=== PATIENT | female | born 1985 | race Caucasian/White ===

== ENCOUNTER 2016-06-30 16:57 | Emergency (ER) | payer BC, OTHER ==
[~2016-06-30] VITALS: Ht 167.6 cm; Wt 131.0 kg
[~2016-06-30 16:57] MED LIST: ADVIN50/60 INH; ALBU1AER9 INH; BTLAI INJ; CETI10TA84 PO; CHOL2000 PO; CLIN1GEL TOP; CYCL10TA6 PO; GUAI1TAB27 PO; HALO0.5T9 PO; HYDR-4079 PO; HYDR0.5T PO; LORA1TAB13 PO; MECL1TAB40 PO; MGRIN; MISC4CAP PO; MONT1TAB3 PO; OMEP40CA PO; ONDA4TAB7 SL; TIZA4CAP PO; ZOLP5TAB PO
[2016-06-30 17:14] VITALS: TEMP 37; Ht 167.6 cm; Wt 131.0 kg
[2016-06-30] MEDS ORDERED: VTMD PO (17:59)
[2016-06-30] MEDS ORDERED: ALBU18002 INH (17:59)
--- NOTE | 2016-06-30 18:00 | DIAGNOSTIC IMAGING REPORT ---
LEFT SHOULDER MIN 2 VIEWS ROUTINE CLINICAL HISTORY: posterior pain pain COMPARISON: None. DISCUSSION: The bones and joint spaces appear intact. There is no evidence of fracture, dislocation or bony disease. There is no evidence for soft tissue swelling. IMPRESSION: Negative study. Electronically signed by: Uziel Sheehan M.D. 06/30/2016 5:59 PM Dictated Date/Time: 06/30/2016 5:58 PM
--- NOTE | 2016-06-30 18:33 | EMERGENCY ROOM VISIT NOTE ---
ED Visit Note First contact with patient: 17:19 Chief Complaint: LEFT Shoulder and Neck Pain History of Present Illness: Patient is a 30 year old female who presents to the emergency room today for evaluation of her LEFT sided posterior shoulder pain. She reports that while sitting in her recliner chair she noticed pain and cramping to the posterior shoulder. She reports a popping-like sensation to her back. 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 She reports a history of similar symptoms to the LEFT-sided shoulder. The patient rates her current discomfort as a 6/10. She is tried nothing [id number] for her symptoms. She denies any numbness or tingling into the distal extremity. She denies any associated elbow pain, forearm pain, or wrist pain. Medications: Reviewed and discussed with the patient. Allergies: Multiple allergies listed above. PMH: No pertinent past medical history. SHx: Patient is a 30-year-old female who lives locally. ROS: All pertinent positive and negative review of systems are appropriately documented in the History of Present Illness. Physical Exam: VITAL SIGNS - Vital signs and nursing notes were reviewed. GENERAL - 30-year-old female appearing her stated age and in noticeable discomfort throughout the exam. NECK - FROM of the cervical spine. No spinous process or paraspinal muscle tenderness to palpation. No nuchal rigidity. LUNGS - Chest wall symmetric without accessory muscle use, intercostals retractions, or central cyanosis. Normal vesicular breath sounds CTA B/L. No wheezes, rales, or rhonchi appreciated. CARDIAC - RRR with S1/S2. No murmur, rubs, or gallops appreciated. MUSCULOSKELETAL - Active ROM of the LEFT shoulder was limited in all directions. Greater than 110 of abduction. No step-off deformities of the clavicle were palpable. No tenderness over the AC joint with palpation. No tenderness to palpation at the bicepital insertion. No tenderness to palpation over the deltoid. Tenderness to palpation over the LEFT rhomboid muscle distribution. NEUROLOGIC - SENSORY: Spinothalamic tract was found to be intact with ability to discriminate sharp versus dull sensation at the level of the LEFT side of the neck down to the fingertips. No sensory deficits of the dorsal column were appreciated utilizing light touch for evaluation. VASCULAR - Capillary refill was brisk. +3/5 radial pulse palpated. IMAGING: LEFT SHOULDER MIN 2 VIEWS ROUTINE CLINICAL HISTORY: posterior pain pain COMPARISON: None. DISCUSSION: The bones and joint spaces appear intact. There is no evidence of fracture, dislocation or bony disease. There is no evidence for soft tissue swelling. IMPRESSION: Negative study. ED Course: Patient was seen and evaluated by myself. X-ray of the affected shoulder was obtained. Imaging results above. Imaging results were reviewed with the patient who acknowledges understanding. The patient was educated on conservative measures at home. She was educated on worrisome symptoms for return visit to the emergency department. Patient discharged home in good condition. In the evaluation and treatment of this patient, the following differential diagnoses were considered: Shoulder Contusion, Shoulder Fracture, Shoulder Dislocation, Thoracic Outlet Syndrome, Adhesive Capsulitis, Rotator Cuff Tear, Proximal Clavicle Head Fracture, Apical Pneumonia, Pneumothorax, Hemothorax, or TB. Impression: LEFT Shoulder Pain - Musculoskeletal Strain Discharge Instructions: You have been treated in the Emergency Department for Shoulder Pain - Musculoskeletal Strain. For pain control, you can use the following [id number] medicines (if >12 yo): - Regular strength (325mg/tab) Tylenol (acetaminophen) 2 tabs every 4-6 hours as needed. Do not exceed 12 tablets in a 24 hour period. Avoid taking more than 4 grams (4000 mg) of Tylenol per day. This includes any other sources of acetaminophen you may take on a regular basis. - Regular strength (200 mg/tab) Advil (ibuprofen) 1-2 tabs every 4-6 hours as needed. Do not exceed a dose of 3200 mg per day. If this is a recent injury (<24 hrs), ice can be applied to the area of pain for the first 3 days to help decrease pain and inflammation. Return to the Emergency Department if your current symptoms worsen despite treatment course outlined above, or if you develop any of the following symptoms : intractable pain despite aforementioned treatment course or new onset of numbness or tingling of the arm. Problem List Medical Problems: (1) Asthma Status: Chronic (2) Bronchitis Status: Chronic (3) Dysmenorrhea Status: Chronic (4) Migraines Status: Chronic Surgical Problems: (1) History of laparoscopy Status: Resolved (2) [place] teeth extracted Status: Resolved Current/Historical Medications Scheduled Clindamycin Phosphate (Topical (Cleocin-T), 1 APPLN TOP UD Cyanocobalamin (Vitamin B-12), 1,000 MCG PO DAILY Ergocalciferol (Vitamin D), 50,000 UNIT PO SUNDAY Fexofenadine Hcl (Kera), 180 MG PO HS Montelukast Sodium (Singulair), 10 MG PO DAILY Omeprazole (Prilosec), 40 MG PO QAM Scheduled PRN Albuterol Sulfate (Proair Respiclick), 2 PUFFS INH Q4 PRN for PRN Cyclobenzaprine Hcl (Flexeril), 10 MG PO TID PRN for headache,neck pain Dicyclomine Hcl (Dicyclomine Hcl), 10 MG PO TID PRN for rhinitis,asthma,anx,h/a, ibs Guaifenesin (Guaifenesin), 400 MG PO Q4 PRN for cold sx Haloperidol (Haldol), 2 MG PO BID PRN for Migraine Hydrocodone/Acetaminophen 10MG/325MG ([place] 10MG/325MG), 1 TAB PO Q4H PRN for Pain Lorazepam (Lorazepam), 0.5-1 MG PO BID PRN for anxiety Ondasetron Odt (Zofran Odt), 4 MG SL TID PRN for Nausea Promethazine HCl (Promethazine HCl), 25 MG PO TID PRN for migraine headache, nausea Tizanidine (Zanaflex), 4 MG PO BID PRN for PRN Tramadol (Ultram), 50 MG PO BID PRN for Headache Zolpidem Tartrate (Ambien), 5 MG PO HS PRN for Sleep Allergies Coded Allergies: POLLEN (Verified Allergy, Intermediate, asthma, 06/30/16) Sumatriptan (Verified Allergy, Intermediate, unknown, 06/30/16) Bacitracin (Verified Allergy, Mild, HIVES, 06/30/16) Doxycycline (Verified Allergy, Mild, GI SYMPTOMS, 06/30/16) Neomycin (Verified Allergy, Mild, HIVES, 06/30/16) Polymyxin B (Verified Allergy, Mild, HIVES, 06/30/16) Povidone Iodine (Verified Allergy, Mild, HIVES, 06/30/16) Animal Dander (Verified Allergy, Unknown, ., 06/30/16) Levofloxacin (Verified Allergy, Unknown, itchy/breathing difficulty, ) Eletriptan (Verified Adverse Reaction, Intermediate, neck stiffness, ) Uncoded Allergies: ADHESIVE (Adverse Reaction, Unknown, erthema, 07/21/13) patient Vital Signs Date Time Temp Pulse Resp B/P Pulse Ox O2 Delivery O2 Flow Rate FiO2 06/30/16 18:37 84 18 137/101 97 Room Air 06/30/16 17:14 37.0 85 18 128/91 99 Room Air Departure Information Impression Primary Impression: Left shoulder strain Dispostion Home / Self-Care Condition GOOD Referrals Noah Rader D.O.[facility]. (PCP) Patient Instructions My [facility] Additional Instructions You have been treated in the Emergency Department for Shoulder Pain - Musculoskeletal Strain. For pain control, you can use the following iozn-ttj-tuwfeyx medicines (if >12 yo): - Regular strength (325mg/tab) Tylenol (acetaminophen) 2 tabs every 4-6 hours as needed. Do not exceed 12 tablets in a 24 hour period. Avoid taking more than 4 grams (4000 mg) of Tylenol per day. This includes any other sources of acetaminophen you may take on a regular basis. - Regular strength (200 mg/tab) Advil (ibuprofen) 1-2 tabs every 4-6 hours as needed. Do not exceed a dose of 3200 mg per day. If this is a recent injury (<24 hrs), ice can be applied to the area of pain for the first 3 days to help decrease pain and inflammation. Return to the Emergency Department if your current symptoms worsen despite treatment course outlined above, or if you develop any of the following symptoms : intractable pain despite aforementioned treatment course or new onset of numbness or tingling of the arm. Problem Qualifiers Primary Impression: Left shoulder strain Encounter type: initial encounter Qualified Codes: S46.912A - Strain of unspecified muscle, fascia and tendon at shoulder and upper arm level, left arm , initial encounter
[2016-06-30 18:37] VITALS: BP 137/101; PULSE 84; O2SAT 97
[2016-12-23] MEDS ORDERED: FEXO1TAB46 PO (00:14)
[2016-12-23] MEDS ORDERED: DICY10CA12 PO (00:24)
[2016-12-23] MEDS ORDERED: PROM25TA16 PO (08:43)
[2016-12-23] MEDS ORDERED: CYAN100048 PO (08:43)
[2016-12-23] MEDS ORDERED: TRAM-10 PO (16:55)
[2016-12-23] MEDS ORDERED: OMEP40CA41 PO (17:59)
[2016-12-23] MEDS ORDERED: ONDA4TAB10 SL (17:59)
== END 2016-06-30 18:38 | disposition home or self-care (01) ==
LOC: C.EDB 16:58 → C.EDD 18:38
DX: S46.912A Strain of unspecified muscle, fascia and tendon at shoulder and upper arm level, left arm, initial encounter (principal); X58.XXXA Exposure to other specified factors, initial encounter; J45.909 Unspecified asthma, uncomplicated; Q79.6 Ehlers-Danlos syndromes; Z79.899 Other long term (current) drug therapy; Z88.8 Allergy status to other drugs, medicaments and biological substances

== ENCOUNTER 2016-12-23 18:01 | Emergency (ER) | payer BC ==
[~2016-12-23] VITALS: Ht 165.1 cm; Wt 135.0 kg
[~2016-12-23 18:01] MED LIST changes: -ADVIN50/60 INH; +ALBU18002 INH; -ALBU1AER9 INH; -BTLAI INJ; -CETI10TA84 PO; -CHOL2000 PO; +CYAN100048 PO; +DICY10CA12 PO; +FEXO1TAB46 PO; -HYDR0.5T PO; -MECL1TAB40 PO; -MGRIN; -MISC4CAP PO; -OMEP40CA PO; +OMEP40CA41 PO; +ONDA4TAB10 SL; -ONDA4TAB7 SL; +PROM25TA16 PO; +TRAM-10 PO; +VTMD PO
[2016-12-23 18:17] VITALS: TEMP 36.6; Ht 165.1 cm; Wt 135.0 kg
[2016-12-23] MEDS ORDERED: ACETAMINOPHEN 325 MG TAB PO STA (18:48)
[2016-12-23] MEDS ORDERED: ZOLP5TAB6 PO (19:14)
[2016-12-23] MEDS ORDERED: HYDR-4313 PO (19:14)
[2016-12-23] MEDS ORDERED: SNG10 PO (19:14)
[2016-12-23] MEDS ORDERED: LEVO-14 PO (19:14)
[2016-12-23] MEDS ORDERED: ALBINS/ NEB (19:14)
[2016-12-23] MEDS ORDERED: ADVIN50/60 INH (19:14)
[2016-12-23] MEDS ORDERED: CELE1CAP30 PO (19:14)
[2016-12-23] MEDS ORDERED: ATV1 PO (19:14)
[2016-12-23] MEDS ORDERED: TIZA1CAP PO (19:14)
[2016-12-23 19:20] VITALS: BP 147/84; PULSE 79; O2SAT 99
--- NOTE | 2016-12-23 23:57 | EMERGENCY ROOM VISIT NOTE ---
ED Visit Note First contact with patient: 18:22 Chief Complaint: Headache. History of Present Illness: Ms. Burton is a 31-year-old white female who ambulates into the ED complaining of a headache. Patient reports less than an hour ago she was picking up her cell phone which it dropped on the floor of her car. While she was standing up she struck the top of her head on the door frame of her car. At the time of the injury she had no loss of consciousness, but since the injury she reports that she has had a headache over the top of her head. She describes the headache as a throbbing sensation. She rates her discomfort 5/ 10. Her pain is nonradiating. She has not identified any aggravating or alleviating factors related to the pain. She has not taken any medications for pain prior to arrival at the hospital. Associated with her pain she reports she is having left shoulder pain over the trapezius muscle over the scapula and feels like she is having difficulty focusing her vision. She denies dizziness, lightheadedness, loss of vision, hearing changes, difficulty speaking, difficulty swallowing, difficulty ambulating/coordinating body movements,neck pain, nausea/vomiting, extremity weakness/numbness/tingling. Review of Systems: As noted above in history of present illness. 8 body systems were reviewed and found to be negative as noted above. Past Medical History:asthma, bronchitis, right upper extremity DVT, unspecified connective tissue disorder, migraine headaches, shoulder and knee arthritis, hypothyroidism, status post wisdom teeth extraction, tonsillectomy, pelvic laparoscopy for endometriosis Current Medications: Medications Dose Route/Sig Max Daily Dose Days Date Category Dose Instructions Lorazepam 1 Mg Tab 1 Mg PO DAILY PRN 12/23/16 Reported Zolpidem Tartrate 5 Mg Tab 5 Mg PO HS PRN 12/23/16 Reported Proventil 0.083% 2.5MG/3ML (Albuterol Sulf) 2.5 Mg/3 Ml Nebu 1 Vial NEB Q4-6HRS PRN 12/23/16 Reported Advair Diskus 500/50 60 Dose (Fluticasone Prop/Salmeterol) 1 Ea Aerp 1 Puff INH BID PRN 12/23/16 Reported RINSE MOUTH AFTER USE Montelukast Sodium (Montelukast Sod) 10 Mg Tab 10 Mg PO HS 12/23/16 Reported Levocetirizine Dihydrochl (Levocetirizine Dihydrochloride) 5 Mg Tab 5 Mg PO DAILY PRN 12/23/16 Reported Tizanidine Hcl 2 Mg Cap 2 Mg PO TID PRN 12/23/16 Reported Celecoxib 200 Mg Cap 200 Mg PO DAILY 12/23/16 Reported Hydrocodone/Acetaminophen 5-325 mg (Acetaminophen/Hydrocodone Bitart) 1 Ea Tab 1-2 Tabs PO Q4-6HRS PRN 12/23/16 Reported Prilosec (Omeprazole) 40 Mg Cap 40 Mg PO QAM 06/30/16 Reported Zofran Odt (Ondansetron HCl) 4 Mg Tab 4 Mg SL TID PRN 06/30/16 Reported Ultram (Tramadol HCl) 50 Mg Tab 50 Mg PO BID PRN 04/24/14 Reported Dicyclomine Hcl 10 Mg Cap 10 Mg PO TID PRN 07/21/13 Reported Kear (Fexofenadine Hcl) 180 Mg Tab 180 Mg PO HS 07/21/13 Reported Promethazine HCl 25 Mg Tab 25 Mg PO TID PRN 01/22/13 Reported Vitamin B-12 (Cyanocobalamin) 1,000 Mcg Sub 1,000 Mcg PO DAILY 01/22/13 Reported Allergies to Medications:bacitracin, doxycycline, Desitin, Levaquin, Betadine, Social History:patient is currently employed; she lives there parents and feels safe in her home environment; she denies tobacco and alcohol use. Physical Examination: Vital Signs: Date Time Temp Pulse Resp B/P (MAP) Pulse Ox O2 Delivery O2 Flow Rate FiO2 12/23/16 19:20 79 20 147/84 99 12/23/16 18:17 36.6 77 20 153/98 97 Room Air GENERAL: 31-year-old female in mild distress due to pain, nontoxic-appearing, afebrile and hemodynamically stable. NEUROLOGICAL: Awake, alert and oriented to person, place and time. Answering questions appropriately and following commands. Normal gait. Good hand eye coordination. No focal motor or sensory deficits. Cranial nerves II through XII grossly intact. Romberg test negative. Pronator drift test negative. Good short-term and long-term recall. Normal rapid or any movements of the hands and fingers. Normal heel dumont test. SKIN: Warm, dry and pink. No soft tissue trauma noted. HEENT: Atraumatic and normocephalic. Skull: No bony deformity, bony crepitus, depressions, swelling or ecchymosis. No raccoon's eyes or ross signs. No drainage in the ears or the nostril; no hemotympanum. Face: No bony tenderness , swelling or ecchymosis. PERRLA. Sclera white and conjunctiva pink. no malocclusion. No intraoral trauma. Airway patent. Speech normal. Trachea midline. No jugular venous distention. BACK: No tenderness over the bony cervical and thoracic spine. full range of motion of the cervical spine.No CVA tenderness. THORAX: Lungs sounds are clear to auscultation and equal bilaterally with symmetrical chest wall. ABDOMEN: Obese, soft and nontender. Positive bowel sounds in all quadrants. No guarding, rigidity or organomegaly. EXTREMITIES: Moves all extremities well on command and with purpose. All distal neurovascular statuses are intact and equal bilaterally. 5/5 muscle strength in all movements of the shoulders, elbows, wrists, forearms, fingers, hips, knees, ankles and feet. ED Course: Patient is assessed as noted above. Patient was given 650 mg of acetaminophen by mouth for pain. I had a discussion with the patient about the risks and benefits of CT scanning ; attentive her conversation she deferred to watch and wait approach. Patient was educated about today's findings and instructed on her treatment plan ; she verbalizes understanding and agreement with this plan. Clinical Impression: Closed head injury. Disposition: Patient discharged home in stable condition; prior to departure she was reassessed and subjectively reported she was feeling the same. Plan: Patient was encouraged to use 650 mg of acetaminophen every 6 hours as needed for pain. Patient was encouraged use ice over areas of pain 4-5 times a day for 20-30 minutes. Patient was encouraged to avoid alcohol use and strenuous activities. Patient was educated on signs of worsening head injury. Patient was encouraged return ED for any signs of worsening head injury or any new/concerning symptoms.
== END 2016-12-23 19:21 | disposition home or self-care (01) ==
LOC: C.EDB 18:03 → C.EDD 19:21
DX: S09.90XA Unspecified injury of head, initial encounter (principal); W22.09XA Striking against other stationary object, initial encounter; M25.512 Pain in left shoulder; J45.909 Unspecified asthma, uncomplicated; G43.909 Migraine, unspecified, not intractable, without status migrainosus; M19.019 Primary osteoarthritis, unspecified shoulder; M17.9 Osteoarthritis of knee, unspecified; E03.9 Hypothyroidism, unspecified; Z86.718 Personal history of other venous thrombosis and embolism

== ENCOUNTER → 2017-04-09 | Outpatient (CLI) | payer BC ==
[~2017-04-09] MED LIST changes: +ADVIN50/60 INH; +ALBINS/ NEB; -ALBU18002 INH; +ATV1 PO; +CELE1CAP30 PO; -CLIN1GEL TOP; -CYCL10TA6 PO; -GUAI1TAB27 PO; -HALO0.5T9 PO; -HYDR-4079 PO; +HYDR-4313 PO; +LEVO-14 PO; -LORA1TAB13 PO; -MONT1TAB3 PO; +SNG10 PO; +TIZA1CAP PO; -TIZA4CAP PO; -VTMD PO; -ZOLP5TAB PO; +ZOLP5TAB6 PO
[2017-04-09 19:09] LABS: ALT/SGPT 26 U/L (12-78); BLOOD UREA NITROGEN 17 mg/dl (7-18); BUN/CREATININE RATIO 18.6 (10-20); CALCIUM 9.1 mg/dl (8.5-10.1); CARBON DIOXIDE 26 mmol/L (21-32); CHLORIDE 105 mmol/L (98-107); CHOLESTEROL 155 mg/dl (0-200); GLUCOSE 95 mg/dl (70-99); POTASSIUM 3.8 mmol/L (3.5-5.1); SODIUM 138 mmol/L (136-145)
[2017-04-09 19:16] LABS: ALB/GLOB RATIO 1.1 (0.9-2); ALKALINE PHOSPHATASE 81 U/L (45-117); AST/SGOT 16 U/L (15-37); CHOLESTEROL/HDL RATIO 3.4; HDL CHOLESTEROL 45 mg/dl; LDL CHOLESTEROL CALCULATED 85 mg/dl; TRIGLYCERIDES 124 mg/dl (0-150); VERY LOW DENSITY LIPOPROT CALC 25 mg/dl
== END | disposition home or self-care (01) ==
LOC: C.LAB 17:48
PROVIDERS: ATTEND Physician Assistant
DX: E55.9 Vitamin D deficiency, unspecified (principal); E05.00 Thyrotoxicosis with diffuse goiter without thyrotoxic crisis or storm

== ENCOUNTER → 2017-09-11 | Outpatient (CLI) | payer OTHER ==
[2017-09-11 19:21] LABS: BASO % 0.4 %; BASO ABS # 0.04 K/uL (0-0.2); EOS % 2.8 %; EOS ABS # 0.29 K/uL (0-0.5); HEMATOCRIT 37.6 % (37-47); IG# 0.02 K/uL (0.00-0.02); LYMPH % 28.5 %; LYMPH ABS # 2.98 K/uL (1.2-3.4); MEAN CORPUSCULAR HEMOGLOBIN 25.2 pg (25-34); MEAN CORPUSCULAR HGB CONC 31.9 g/dl (32-36); MONO % 5.9 %; MONO ABS # 0.62 K/uL (0.11-0.59); NEUT % 62.2 %; PLATELET COUNT 285 K/uL (130-400); RED CELL DISTRIBUTION WIDTH CV 16.2 % (11.5-14.5); RED CELL DISTRIBUTION WIDTH SD 46.9 fL (36.4-46.3); WHITE BLOOD COUNT 10.45 K/uL (4.8-10.8)
== END | disposition home or self-care (01) ==
LOC: C.LAB 18:48
PROVIDERS: ATTEND Internal Medicine
DX: Z00.00 Encounter for general adult medical examination without abnormal findings (principal); E53.8 Deficiency of other specified B group vitamins; E55.9 Vitamin D deficiency, unspecified; E05.00 Thyrotoxicosis with diffuse goiter without thyrotoxic crisis or storm

== ENCOUNTER → 2017-09-19 | Outpatient (CLI) | payer OTHER ==
[2017-09-19 15:52] LABS: ALBUMIN 3.3 gm/dl (3.4-5.0); ALT/SGPT 17 U/L (12-78); AST/SGOT 12 U/L (15-37); BLOOD UREA NITROGEN 13 mg/dl (7-18); CALCIUM 8.3 mg/dl (8.5-10.1); CARBON DIOXIDE 24 mmol/L (21-32); GLUCOSE 79 mg/dl (70-99); POTASSIUM 3.7 mmol/L (3.5-5.1); SODIUM 139 mmol/L (136-145)
[2017-09-19 15:54] LABS: ALKALINE PHOSPHATASE 70 U/L (45-117); TOTAL PROTEIN 6.6 gm/dl (6.4-8.2)
[2017-09-19 16:40] LABS: HEP C IGG 13 YRS+OLDER_RFLX NEG (NEG)
[2017-09-21 12:54] LABS: ANA SCREEN TC 249X POSITIVE (NEGATIVE); ANTI-SS-A <1.0 NEG AI (<1.0 NEG); ANTI-SS-B <1.0 NEG AI (<1.0 NEG); ANTI-dsDNA RECOMBINANT 255X <1 IU/ML; COMPLEMENT C3 TC 44859W 160 MG/DL (90-180); COMPLEMENT C4 TC 44982E 34 MG/DL (16-47)
[2017-09-25 09:03] LABS: ANA TITER > OR = 1:1280 TITER (<1:40)
== END | disposition home or self-care (01) ==
LOC: C.LAB 14:33
PROVIDERS: ATTEND Internal Medicine
DX: M35.9 Systemic involvement of connective tissue, unspecified (principal)

== ENCOUNTER 2020-12-09 09:24 | Inpatient (IN) ==
[2020-12-09] MEDS ORDERED: ONDANSETRON INJ 2 MG/ML 2 ML VIAL IV STA (09:53)
--- NOTE | 2020-12-09 10:00 | Emergency Department Note ---
Impression & Plan Vertigo, Near syncope, Abnormal chest CT ED Provider Note NAME: ROSELYN KIM AGE: 35 SEX: F : 1985 ARRIVES VIA: Walk-In INFORMANT: Patient, ED PROVIDER(S): Ángel Harris DO CHIEF COMPLAINT: Dizziness HPI: The patient is a 35-year-old female who presented to the emergency department for an evaluation of dizziness. The patient describes episodes where she feels like she is falling forward but also dizziness that sounds almost like near syncope. She has lightheadedness. She states that she has had similar symptoms in the past. She also states that she has had upper respiratory symptoms for the last few weeks as well. She went to see her family doctor for the symptoms. She had outpatient laboratory studies done and was told to go to the ER last night because of a positive D-dimer. The patient denies having any chest pain. She states that she has had shortness of breath but has a history of asthma and states her shortness of breath appears to be at baseline according to her. The patient states that she was sent to the emergency department but when she came to the emergency department last evening the wait was too long so she went home. The patient denies having any lower extremity swelling. She has no abdominal pain. She has no vaginal bleeding or discharge. She denies having any back pain at this time. The patient states her symptoms were improved this morning but then when she got up to go to work she noticed that she was having the symptoms again. For this reason she came to the emergency department today for further work-up and management. ROS: See above HPI for pertinent positives & negatives. A total of 10 systems reviewed and were otherwise negative. PAST MEDICAL HISTORY: See Below PAST SURGICAL HISTORY: See Below FAMILY HISTORY: See Below SOCIAL HISTORY: See Below HOME MEDICATIONS: See Below ALLERGIES: See Below VITALS: See Below PHYSICAL EXAMINATION: GENERAL: Patient is awake alert in no acute distress patient is resting comfortably and showing no signs of anxiety EYES: The conjunctivae are clear. The pupils are round and reactive. No nystagmus was elicited. EARS, NOSE, MOUTH AND THROAT: The nose is without any evidence of any deformity. NECK: The neck is nontender and supple. RESPIRATORY: Normal respiratory effort is noted there is no evidence of wheezing rhonchi or rales CARDIOVASCULAR: Regular rate and rhythm noted there no murmurs rubs or gallops normal S1 normal S2. GASTROINTESTINAL: The abdomen is soft. Abdomen is nontender. MUSCULOSKELETAL/EXTREMITIES: There is no evidence of gross deformity full range of motion is noted in the hips and shoulders. SKIN: There is no obvious evidence of any rash. There are no petechiae, pallor or cyanosis noted. NEUROLOGIC: Patient is awake alert and oriented x3 strength is symmetric patellar reflexes are 2+ bilaterally MEDICAL DECISION MAKING: The patient is a 35-year-old female who presented to the emergency department for an evaluation of dizziness and near syncope. The patient also had vertigo symptoms. The patient was seen by her primary care physician's office recently. She had outpatient laboratory studies. 1 of which was a D-dimer. The patient was sent to the emergency department for CT of the chest because of the elevated D-dimer. She had no chest pain. She was not tachycardic or hypoxic. The patient symptoms appear to be more consistent with vertigo. Even her findings I felt the patient may require further work-up for neurologic causes for her vertigo. I discussed the patient's laboratory and radiographic studies with her. I discussed her case with the on-call [facility] hospitalist. She had a CT of the chest as recommended by her family doctor. This showed an area of possible thrombus in the atrial appendage. I discussed this finding with the on-call cardiology group. They did recommend the patient get a transesophageal echo. MRI was then ordered to ensure there was no acute neurologic process that would keep the patient from being anticoagulated. Triage Nursing notes reviewed. Prior medical records reviewed Vital Signs: reviewed and remarkable for elevated blood pressure. Differential diagnosis: Benign positional vertigo, dehydration, hypovolemia, anemia, tumor, infection, h ypoglycemia, electrolyte abnormalities, cardiac sources, intracerebral event, toxicologic, neurologic, as well as other pathologies. ER treatment provided: See below Diagnostics interpreted by me: ECG: EKG was obtained in the emergency department. My interpretation is normal sinus rhythm at 76 bpm. There is no ectopy. There was no acute ST segment abnormalities noted. This was compared to a tracing from December 03, 2013. No significant changes were noted. Cardiac Monitoring: An order was placed for continuous cardiac monitoring. The monitor shows a rate of 70 bpm with sinus rhythm. Laboratory studies: As stated above and show below. Imaging studies: See below Consultation(s): 1315: I discussed this case with Dr. Leon. 1330: I discussed this case with Shimon who is on-call for the [facility] hospitalist group. Past Med/Surg History Medical History (Updated 12/09/20 @ 16:52 by Ángel Harris DO) Acute deep vein thrombosis of right upper extremity Asthma Chronic GERD Depression with anxiety Dislocation of left hip Dysmenorrhea Fecal retention Generalized hypermobility of joints Graves disease Hypothyroidism Irritable bowel syndrome Migraines Morbid obesity Vertigo Surgical History H/O wisdom tooth extraction S/P laparoscopic procedure 2011, neg for pelvic pain Family History Father Dyslipidemia Hypertension Diabetes Mother Hypertension Glaucoma Breast cancer age 60's Diabetes Asthma Grandmother (Paternal) Breast cancer Denies family history of Ovarian cancer Colorectal cancer Social History Smoking Status: Never smoker Hx Alcohol Use: No Hx Substance Use: No Preferred Language: Armenian Communication Ability: Effective Visual Impairment: No Limitations Hearing Ability: Normal Beliefs That Will Affect Care: None marital status: single Current Living Situation: Parent current occupational status: student Feels Safe at Home: Yes Assistive Devices: Glasses Allergies Allergies Allergy/AdvReac Type Severity Reaction Status Date / Time pollen extracts Allergy Intermediate asthma Verified 12/09/20 10:56 sumatriptan Allergy Intermediate unknown Verified 12/09/20 10:56 aspirin Allergy Mild Unknown Verified 12/09/20 10:56 bacitracin Allergy Mild HIVES Verified 12/09/20 10:56 divalproex sodium Allergy Mild Unknown Verified 12/09/20 10:56 [From Depakote] doxycycline Allergy Mild GI SYMPTOMS Verified 12/09/20 10:56 neomycin Allergy Mild HIVES Verified 12/09/20 10:56 polymyxin B Allergy Mild HIVES Verified 12/09/20 10:56 povidone-iodine Allergy Mild HIVES Verified 12/09/20 10:56 soap [From Betadine] Allergy Mild Unknown Verified 12/09/20 10:56 adhesive Allergy Unknown ERYTHEMA Verified 12/10/20 02:22 animal dander Allergy Unknown . Verified 12/09/20 10:56 levofloxacin Allergy Unknown itchy/breathing Verified 12/09/20 10:56 difficulty topiramate [From Topamax] Allergy Unknown Verified 12/09/20 10:56 eletriptan AdvReac Intermediate neck Verified 12/09/20 10:56 stiffness [id number] AdvReac Intermediate welt and Verified 12/09/20 10:56 [From Ajovy] itching lamotrigine [From Lamictal] AdvReac Intermediate Headache Verified 12/09/20 10:56 zonisamide [From Zonegran] AdvReac Mild Nausea Verified 12/09/20 10:56 Home Meds Home Medications Medication Instructions Recorded Confirmed cyanocobalamin (vitamin B-12) 1,000 mcg PO DAILY tab 03/30/19 12/09/20 1,000 mcg tablet,extended release olopatadine 0.7 % eye drops 1 drp OPB DAILY 03/30/19 12/09/20 fexofenadine 180 mg tablet 180 mg PO PM 02/24/20 12/09/20 cholecalciferol (vitamin D3) 50 5,000 unit PO DAILY cap 08/20/20 12/09/20 mcg (2,000 unit) capsule ferrous sulfate 27 mg iron tablet 0 mg PO Q OTHER DAY 12/09/20 12/09/20 ibuprofen 200 mg tablet 400 mg PO QAM PRN 12/09/20 12/09/20 levocetirizine 5 mg tablet 5 mg PO DAILY 12/09/20 12/09/20 tizanidine 2 mg tablet 2 - 4 mg PO BID PRN 12/09/20 12/09/20 tramadol 50 mg tablet 50 mg PO BID PRN 12/09/20 12/09/20 Previous Rx's Medication Instructions Recorded albuterol sulfate 2.5 mg INHALATION Q4H PRN #3 ml 07/25/19 lorazepam 1 mg tablet 1 mg PO BID PRN #30 tab 07/29/19 albuterol sulfate 90 mcg/actuation 2 puffs INH Q4H PRN #18 gm 11/24/19 aerosol inhaler pantoprazole 40 mg tablet,delayed 40 mg PO DAILY #90 tab 11/24/19 release ondansetron 4 mg disintegrating 4 mg PO ONCE PRN #30 tab 09/30/20 tablet promethazine 25 mg tablet 25 mg PO ONCE PRN #30 tab 09/30/20 meclizine 25 mg tablet 25 mg PO TID PRN #60 tab 12/08/20 Results & Data (ED) Vital Signs Vital Signs - 24 hr 12/09/20 09:29 12/09/20 10:25 12/09/20 11:25 Temperature 36.5 C Temperature Source Temporal Artery Scan Pulse Rate 82 Pulse Rate [Right Finger] Respiratory Rate 18 Respiratory Effort / Characteristics Respiratory Depth Respiratory Pattern Blood Pressure 142/87 H Blood Pressure [Left Arm] 142/88 H Blood Pressure Mean 105 Blood Pressure Mean [Left Arm] 106 Blood Pressure Position [Left Arm] Pulse Oximetry 99 Oxygen Delivery Method Room Air Room Air Sepsis Recent Fever Within 48 Hours No Sepsis New/Unexplained Change in Mental Status N/A Sepsis Action Taken by Nursing No Action Required 12/09/20 13:00 Temperature Temperature Source Pulse Rate Pulse Rate [Right Finger] 87 Respiratory Rate 20 Respiratory Effort / Characteristics Non-Labored Respiratory Depth Normal Respiratory Pattern Regular Blood Pressure Blood Pressure [Left Arm] 154/89 H Blood Pressure Mean Blood Pressure Mean [Left Arm] 110 Blood Pressure Position [Left Arm] Lying Pulse Oximetry 97 Oxygen Delivery Method Room Air Sepsis Recent Fever Within 48 Hours Sepsis New/Unexplained Change in Mental Status Sepsis Action Taken by Prison Medications Current Medication List: was personally reviewed by me Laboratory Data Attestation: I reviewed the patient's lab results. Result diagrams: 12/09/20 10:45 12/09/20 10:45 Lab Results 12/09/20 12/09/20 12/09/20 Range/Units 10:45 10:45 10:45 WBC 9.20 (4.8-10.8) K/uL RBC 4.91 (4.2-5.4) M/uL Hgb 12.0 (12.0-16.0) g/dL Hct 38.4 (37-47) % MCV 78.2 L (80-100) fL MCH 24.4 L (25-34) pg MCHC 31.3 L (32-36) g/dL RDW Std Deviation 47.8 H (36.4-46.3) fL RDW Coeff of [place] 16.7 H (11.5-14.5) % Plt Count 282 (130-400) K/uL MPV 10.5 H (7.4-10.4) fL Immature Gran % (Auto) 0.2 % Neut % (Auto) 67.7 % Lymph % (Auto) 21.6 % [place] % (Auto) 7.6 % Eos % (Auto) 2.6 % Baso % (Auto) 0.3 % Neut # (Auto) 6.22 (1.4-6.5) K/uL Lymph # (Auto) 1.99 (1.2-3.4) K/uL [place] # (Auto) 0.70 H (0.11-0.59) K/uL Eos # (Auto) 0.24 (0-0.5) K/uL Baso # (Auto) 0.03 (0-0.2) K/uL Immature Gran # (Auto) 0.02 (0.00-0.02) K/uL Sodium 140 (136-145) mmol/L Potassium 3.8 (3.5-5.1) mmol/L Chloride 111 H (98-107) mmol/L Carbon Dioxide 27 (21-32) mmol/L Anion Gap 2.0 L (3-11) BUN 7 (7-18) mg/dl Creatinine 0.91 (0.6-1.2) mg/dl Est Cr Clr Drug Dosing 118.3 ml/min Est GFR ( Amer) 94.1 ml/min Est GFR (Non-Af Amer) 81.2 ml/min BUN/Creatinine Ratio 8.0 L (10-20) Glucose 106 H (70-99) mg/dl Calcium 8.7 (8.5-10.1) mg/dl Magnesium 2.3 (1.8-2.4) mg/dl Total Bilirubin 0.3 (0.2-1) mg/dl AST 13 L (15-37) U/L ALT 19 (12-78) U/L Alkaline Phosphatase 58 (45-117) U/L Troponin I < 0.015 (0-0.045) ng/ml Total Protein 6.4 (6.4-8.2) gm/dl Albumin 3.3 L (3.4-5.0) gm/dl Globulin 3.1 (2.5-4.0) gm/dl Albumin/Globulin Ratio 1.1 (0.9-2) TSH 2.370 (0.300-4.500) uIu/ml HCG, Qual Negative (Negative) COVID-19 Eval Order SARS-CoV-2 (PCR) (Negative) 12/09/20 12/09/20 Range/Units 13:31 13:31 WBC (4.8-10.8) K/uL RBC (4.2-5.4) M/uL Hgb (12.0-16.0) g/dL Hct (37-47) % MCV (80-100) fL MCH (25-34) pg MCHC (32-36) g/dL RDW Std Deviation (36.4-46.3) fL RDW Coeff of [place]gr[place] (11.5-14.5) % Plt Count (130-400) K/uL MPV (7.4-10.4) fL Immature Gran % (Auto) % Neut % (Auto) % Lymph % (Auto) % [place] % (Auto) % Eos % (Auto) % Baso % (Auto) % Neut # (Auto) (1.4-6.5) K/uL Lymph # (Auto) (1.2-3.4) K/uL [place] # (Auto) (0.11-0.59) K/uL Eos # (Auto) (0-0.5) K/uL Baso # (Auto) (0-0.2) K/uL Immature Gran # (Auto) (0.00-0.02) K/uL Sodium (136-145) mmol/L Potassium (3.5-5.1) mmol/L Chloride (98-107) mmol/L Carbon Dioxide (21-32) mmol/L Anion Gap (3-11) BUN (7-18) mg/dl Creatinine (0.6-1.2) mg/dl Est Cr Clr Drug Dosing ml/min Est GFR ( Amer) ml/min Est GFR (Non-Af Amer) ml/min BUN/Creatinine Ratio (10-20) Glucose (70-99) mg/dl Calcium (8.5-10.1) mg/dl Magnesium (1.8-2.4) mg/dl Total Bilirubin (0.2-1) mg/dl AST (15-37) U/L ALT (12-78) U/L Alkaline Phosphatase (45-117) U/L Troponin I (0-0.045) ng/ml Total Protein (6.4-8.2) gm/dl Albumin (3.4-5.0) gm/dl Globulin (2.5-4.0) gm/dl Albumin/Globulin Ratio (0.9-2) TSH (0.300-4.500) uIu/ml HCG, Qual (Negative) COVID-19 Eval Order Covid19 at [facility] SARS-CoV-2 (PCR) NEGATIVE (Negative) Administered Medications Fexofenadine HCl (Fexofenadine Hcl 180 Mg Tab) 180 mg PO PM DEON Stop: 01/08/21 20:59 Last Admin: 12/09/20 20:49 Dose: 180 mg Documented by: [id number] Heparin Sodium/Dextrose (Heparin Sodium/Dextrose) 25,000 units in 500 mls @ 31 mls/hr IV .Q16H8M DEON; Protocol Stop: 01/08/21 15:59 Last Titration: 12/10/20 07:11 Dose: 1,550 units/hr, 31 mls/hr Documented by: [id number] Cosigned by: [id number] Titration: 12/10/20 01:53 Dose: 1,550 units/hr, 31 mls/hr Documented by: [id number] Cosigned by: [id number] Admin: 12/09/20 19:00 Dose: 1,550 units/hr, 31 mls/hr Documented by: [id number] Cosigned by: [id number] Discontinued Medications Heparin Sodium/Dextrose (Heparin Iv Adult Wt-Based Standard With Bolus Protocol) 1 ea IV NOW STA; Protocol Stop: 12/09/20 14:50 Last Admin: 12/09/20 19:30 Dose: Not Given Documented by: [id number] Heparin Sodium (Porcine) 7,000 (units/ Syringe) 7 mls @ 10 mls/min IV NOW ONE Stop: 12/09/20 18:46 Last Admin: 12/09/20 18:59 Dose: 10 mls/min Documented by: [id number] Cosigned by: [id number] Lorazepam (Ativan) 1 mg in 2 mls @ 2 mls/min IV NOW STA Stop: 12/10/20 02:17 Last Admin: 12/10/20 02:28 Dose: 2 mls/min Documented by: [id number] Ioversol (Optiray 320 125ml) 120 ml IV ONCE ONE Stop: 12/09/20 11:46 Last Admin: 12/09/20 11:45 Dose: 120 ml Documented by: [id number] Ondansetron HCl (Ondansetron Inj 2 Mg/Ml 2 Ml Vial) 4 mg IV NOW STA Stop: 12/09/20 09:54 Last Admin: 12/09/20 10:45 Dose: 4 mg Documented by: [id number] Imaging Data Radiologist's Impression: Chest CTA 12/09/20 09:53 CT ANGIOGRAM OF THE CHEST CLINICAL HISTORY: sent by PCP for CT chest due to elevated dimer COMPARISON STUDY: November 30, 2013 TECHNIQUE: Following the IV administration of 120 mL of Optiray, CT angiogram of the thorax was performed from the thoracic inlet to the lung bases utilizing the pulmonary embolus protocol. Images are reviewed in the axial, sagittal, and coronal planes. IV contrast was administered without complication. MIP imaging was performed. A dose lowering technique was utilized adhering to the principles of ALARA. CT DOSE: FINDINGS: There is adequate opacification within main pulmonary artery. Evaluation of peripheral branches of pulmonary artery is limited due to motion artifact. Also significant beam hardening artifact due to patient body habitus significantly limits evaluation. No evidence of central pulmonary embolus. Main pulmonary artery is within upper limits of normal for size. No evidence of right heart strain. Heart is within upper limits of normal without evidence of pericardial effusion. No coronary calcifications are seen. Incidental findings of the filling defect within left atrial appendage which could represent small thrombus or flow artifact (301/94) No pathologically enlarged axillary mediastinal or hilar lymph nodes were visualized. There was no evidence of thoracic aortic dilatation. Trachea bronchial tree is patent. Patchy groundglass opacities are seen at dependent portions of bilateral lower lobes likely representing mild atelectasis. No large infiltrates or consolidative lesions are seen. No pleural effusions are visualized. Limited evaluation of upper abdominal viscera shows no definite acute abnormalities however evaluation is limited due to beam hardening artifact. Osseous structures: No significant abnormalities are seen in this slightly limited exam. IMPRESSION: 1. No evidence of central pulmonary embolus. No right heart strain is seen. Pu lmonary artery is within upper limits of normal which could be seen in pulmonary hypertension. 2. Incidental finding of the focal filling defect within left atrial appendage which could be due to flow artifact or represent thrombus. Further evaluation with echocardiography is suggested. Report will be sent to ordering physician office. 3. Mild atelectasis at dependent portions of bilateral lower lobes. 4. The rest of findings as above. ACT 112: Negative or not required by law. The above report was generated using voice recognition software. It may contain grammatical, syntax or spelling errors. Electronically signed by: Hyun Powell DO 12/09/2020 12:[address] 12/09/20 09:[address] DOSE: HISTORY: vertigo TECHNIQUE: Multiaxial CT images of the head were performed without the use of intravenous contrast. Automated exposure control was utilized for this study. A dose lowering technique was utilized adhering to the principles of ALARA. Comparison: None. Findings: The paranasal sinuses and mastoid air cells are clear. The calvarium and skull base are intact. The ventricles and sulci are within normal limits. There is no mass, hematoma, midline shift, or acute infarct. Impression: No acute intracranial abnormality. ACT 112: Negative or not required by law. Electronically signed by: Je Rose M.D. 12/09/2020 12:08 PM Head CTA 12/09/20 09:53 HEAD & NECK CTA HISTORY: vertigo TECHNIQUE: Multiaxial CT images of the head were performed the intravenous administration of contrast to evaluate the major cerebral vessels. Multiaxial CT images of the neck were also performed following the intravenous administration of contrast to evaluate the major cervical vessels. Maximum intensity projection images were also obtained. A dose lowering technique was utilized adhering to the principles of ALARA. COMPARISON: None. FINDINGS: There is no mass, hematoma, midline shift, or acute infarct. Visualized intracranial internal carotid arteries, distal vertebral arteries, and basilar artery are widely patent. There is no significant stenosis, occlusion, or aneurysm seen within the bilateral ACAs, MCAs, or youth program director. The major dural venous sinuses are patent. The aortic arch and proximal great vessels are widely patent. There is no significant stenosis, occlusion, or dissection identified within the bilateral common carotid, internal carotid, or vertebral arteries. IMPRESSION: 1. No significant stenosis, occlusion, or aneurysm within the [place]. 2. No significant stenosis, occlusion, or dissection identified within the carotid or vertebral arteries. ACT 112: Negative or not required by law. Electronically signed by: Je Rose M.D. 12/09/2020 12:12 PM Neck CTA 12/09/20 09:53 HEAD & NECK CTA HISTORY: vertigo TECHNIQUE: Multiaxial CT images of the head were performed the intravenous administration of contrast to evaluate the major cerebral vessels. Multiaxial CT images of the neck were also performed following the intravenous administration of contrast to evaluate the major cervical vessels. Maximum intensity projection images were also obtained. A dose lowering technique was utilized adhering to th e principles of ALARA. COMPARISON: None. FINDINGS: There is no mass, hematoma, midline shift, or acute infarct. Visualized intracranial internal carotid arteries, distal vertebral arteries, and basilar artery are widely patent. There is no significant stenosis, occlusion, or aneurysm seen within the bilateral ACAs, MCAs, or youth program director. The major dural venous sinuses are patent. The aortic arch and proximal great vessels are widely patent. There is no significant stenosis, occlusion, or dissection identified within the bilateral common carotid, internal carotid, or vertebral arteries. IMPRESSION: 1. No significant stenosis, occlusion, or aneurysm within the [place]. 2. No significant stenosis, occlusion, or dissection identified within the carotid or vertebral arteries. ACT 112: Negative or not required by law. Electronically signed by: Je Rose M.D. 12/09/2020 12:12 PM Brain MRI 12/09/20 13:14 MRI OF THE BRAIN WITHOUT CONTRAST CLINICAL HISTORY: vertigo COMPARISON STUDY: None. FINDINGS: Sagittal T1, axial diffusion, proton density and T2 weighted axial, coronal FLAIR, and axial T1-weighted images were acquired. No intra or extra-axial mass lesions are visualized Axial diffusion-weighted images reveal no evidence of acute or subacute infarction. There is no evidence of ventricular dilatation. Proton density T2-weighted and FLAIR images reveal no abnormalities. There are no abnormal flow voids. IMPRESSION: Normal study. ACT 112: Negative or not required by law. The above report was generated using voice recognition software. It may contain grammatical, syntax or spelling errors. Electronically signed by: Hyun Powell DO 12/09/2020 2:31 PM Discharge Plan Visit Data Chief Complaint: Syncope (Near Syncope) Stated Complaint: FEEL FAINT/HEADACHE,NECK PAIN + D-DIMER ED Provider: Ángel Harris Discharge Problem: Vertigo, Near syncope, Abnormal chest CT Patient Disposition: Admitted As Inpatient Condition: Good Discharge Instructions Interventions: ED Discharge Assessment Last Done: 12/09/20 15:46
[2020-12-09 10:57] LABS: Basophils # (auto) 0.03 K/uL (0-0.2); Basophils % (auto) 0.3 %; Eosinophils # (auto) 0.24 K/uL (0-0.5); Eosinophils % (auto) 2.6 %; Hematocrit (blood only) 38.4 % (37-47); Immature Granulocytes # (auto) 0.02 K/uL (0.00-0.02); Immature Granulocytes % (auto) 0.2 %; Lymphocytes # (auto) 1.99 K/uL (1.2-3.4); Lymphocytes % (auto) 21.6 %; Mean Corpuscular Hemoglobin 24.4 pg (25-34); Mean Corpuscular Hgb Conc 31.3 g/dL (32-36); Mean Corpuscular Volume 78.2 fL (80-100); Mean Platelet Volume 10.5 fL (7.4-10.4); Monocytes % (auto) 7.6 %; Neutrophils # (auto) 6.22 K/uL (1.4-6.5); Neutrophils % (auto) 67.7 %; Platelet Count 282 K/uL (130-400); RDW Coefficient of Variation 16.7 % (11.5-14.5); RDW Standard Deviation 47.8 fL (36.4-46.3); Red Blood Count 4.91 M/uL (4.2-5.4)
[2020-12-09 11:16] LABS: Pregnancy Test, Serum Negative (Negative)
[2020-12-09 11:18] LABS: Alanine Aminotransferase 19 U/L (12-78); Albumin Globulin Ratio 1.1 (0.9-2); Albumin Level 3.3 gm/dl (3.4-5.0); Alkaline Phosphatase 58 U/L (45-117); Aspartate Aminotransferase 13 U/L (15-37); Bilirubin,Total 0.3 mg/dl (0.2-1); Blood Urea Nitrogen 7 mg/dl (7-18); Calcium 8.7 mg/dl (8.5-10.1); Carbon Dioxide 27 mmol/L (21-32); Chloride 111 mmol/L (98-107); Creatinine Clr Calc Pharmacy 118.3 ml/min; Est GFR (African American) 94.1 ml/min; Est GFR (Non-African American) 81.2 ml/min; Globulin 3.1 gm/dl (2.5-4.0); Glucose 106 mg/dl (70-99); Magnesium 2.3 mg/dl (1.8-2.4); Potassium 3.8 mmol/L (3.5-5.1); Sodium 140 mmol/L (136-145); Total Protein 6.4 gm/dl (6.4-8.2)
[2020-12-09 11:25] LABS: Troponin I < 0.015 ng/ml (0-0.045)
[2020-12-09] MEDS ORDERED: OPTIRAY 320 125ml IV ONE (11:45)
--- NOTE | 2020-12-09 12:09 | CT Scan Report ---
HEAD CT NONCONTRAST CT DOSE: HISTORY: vertigo TECHNIQUE: Multiaxial CT images of the head were performed without the use of intravenous contrast. A utomated exposure control was utilized for this study. A dose lowering technique was utilized adheri ng to the principles of ALARA. Comparison: None. Findings: The paranasal sinuses and mastoid air cells are clear. The calvarium and skull base are int act. The ventricles and sulci are within normal limits. There is no mass, hematoma, midline shift, or acute infarct. Impression: No acute intracranial abnormality. ACT 112: Negative or not required by law. Electronically signed by: Je Rose M.D. 12/09/2020 12:08 PM
--- NOTE | 2020-12-09 12:13 | CT Scan Report ---
HEAD & NECK CTA HISTORY: vertigo TECHNIQUE: Multiaxial CT images of the head were performed the intravenous administration of contrast to evaluate the major cerebral vessels. Multiaxial CT images of the neck were also performed followi ng the intravenous administration of contrast to evaluate the major cervical vessels. Maximum intensi ty projection images were also obtained. A dose lowering technique was utilized adhering to the princ [place]. COMPARISON: None. FINDINGS: There is no mass, hematoma, midline shift, or acute infarct. Visualized intracranial internal carotid arteries, distal vertebral arteries, and basilar artery are widely patent. There is no significant s tenosis, occlusion, or aneurysm seen within the bilateral ACAs, MCAs, or perfume and toilet water maker. The major dural venous sinuses are patent. The aortic arch and proximal great vessels are widely patent. There is no significant stenosis, occ lusion, or dissection identified within the bilateral common carotid, internal carotid, or vertebral arteries. IMPRESSION: 1. No significant stenosis, occlusion, or aneurysm within the [place]. 2. No significant stenosis, occlusion, or dissection identified within the carotid or vertebral arter ies. ACT 112: Negative or not required by law. Electronically signed by: Je Rose M.D. 12/09/2020 12:12 PM
--- NOTE | 2020-12-09 12:13 | CT Scan Report ---
HEAD & NECK CTA HISTORY: vertigo TECHNIQUE: Multiaxial CT images of the head were performed the intravenous administration of contrast to evaluate the major cerebral vessels. Multiaxial CT images of the neck were also performed followi ng the intravenous administration of contrast to evaluate the major cervical vessels. Maximum intensi ty projection images were also obtained. A dose lowering technique was utilized adhering to the princ ipl[place]ons[place]. COMPARISON: None. FINDINGS: There is no mass, hematoma, midline shift, or acute infarct. Visualized intracranial internal carotid arteries, distal vertebral arteries, and basilar artery are widely patent. There is no significant s tenosis, occlusion, or aneurysm seen within the bilateral ACAs, MCAs, or network coordinator. The major dural venous sinuses are patent. The aortic arch and proximal great vessels are widely patent. There is no significant stenosis, occ lusion, or dissection identified within the bilateral common carotid, internal carotid, or vertebral arteries. IMPRESSION: 1. No significant stenosis, occlusion, or aneurysm within the [place]. 2. No significant stenosis, occlusion, or dissection identified within the carotid or vertebral arter ies. ACT 112: Negative or not required by law. Electronically signed by: Je Rose M.D. 12/09/2020 12:12 PM
--- NOTE | 2020-12-09 12:24 | CT Scan Report ---
CT ANGIOGRAM OF THE CHEST CLINICAL HISTORY: sent by PCP for CT chest due to elevated dimer COMPARISON STUDY: November 30, 2013 TECHNIQUE: Following the IV administration of 120 mL of Optiray, CT angiogram of the thorax was perfo rmed from the thoracic inlet to the lung bases utilizing the pulmonary embolus protocol. Images are r eviewed in the axial, sagittal, and coronal planes. IV contrast was administered without complication . MIP imaging was performed. A dose lowering technique was utilized adhering to the principles of [place] WILL. CT DOSE: FINDINGS: There is adequate opacification within main pulmonary artery. Evaluation of peripheral branches of pu lmonary artery is limited due to motion artifact. Also significant beam hardening artifact due to pat ient body habitus significantly limits evaluation. No evidence of central pulmonary embolus. Main pulmonary artery is within upper limits of normal for size. No evidence of right heart strain. Heart is within upper limits of normal without evidence of pericardial effusion. No coronary calcific ations are seen. Incidental findings of the filling defect within left atrial appendage which could represent small th rombus or flow artifact (301/94) No pathologically enlarged axillary mediastinal or hilar lymph nodes were visualized. There was no evidence of thoracic aortic dilatation. Trachea bronchial tree is patent. Patchy groundglass opacities are seen at dependent portions of bilateral lower lobes likely represent ing mild atelectasis. No large infiltrates or consolidative lesions are seen. No pleural effusions are visualized. Limited evaluation of upper abdominal viscera shows no definite acute abnormalities however evaluatio n is limited due to beam hardening artifact. Osseous structures: No significant abnormalities are seen in this slightly limited exam. IMPRESSION: 1. No evidence of central pulmonary embolus. No right heart strain is seen. Pulmonary artery is with in upper limits of normal which could be seen in pulmonary hypertension. 2. Incidental finding of the focal filling defect within left atrial appendage which could be due to flow artifact or represent thrombus. Further evaluation with echocardiography is suggested. Report w ill be sent to ordering physician office. 3. Mild atelectasis at dependent portions of bilateral lower lobes. 4. The rest of findings as above. ACT 112: Negative or not required by law. The above report was generated using voice recognition software. It may contain grammatical, syntax o r spelling errors. Electronically signed by: Hyun Powell DO 12/09/2020 12:22 PM
--- NOTE | 2020-12-09 14:22 | History & Physical Report ---
Date of Service December 09, 2020 Assessment & Plan (1) Left atrial thrombus: Plan: Incidental on CTA of the chest- Rule out with SONG in the morning. - Heparin drip with bolus - NPO after midnight - Cards consulted - Anesthesia consulted - Telemetry overnight - ECG normal - no murmur (2) Dyspnea: Plan: As per HPI relieved with her Albuterol - continue inhaler - Follow with activity and while in house - CTA of the chest negative for PE (3) Headache: Plan: Tension with migraines - continue abortive therapy- chronic follows with neurology as outpatient (4) Tension headache: Plan: As above - heat and Tylenol (5) Asthma: Plan: As above, patient feels symptoms are controlled (6) Morbid obesity: Plan: Continue with outpatient weight loss strategies (7) Depression with anxiety: Plan: No acute needs - Continue with Ativan prn (8) Hypothyroidism: Plan: Has been off synthroid for "quite a while" - Follows with PCP- T4 1.18 TSH 2-3 over last couple years (9) Osteoarthritis of knees, bilateral: Plan: Follows with ortho for injections - usually controlled with Tylenol - She uses Tramadol for severe pain- held (10) Positive KINA (antinuclear antibody): Plan: 2018- Homogeneous A- - unaware of reasoning or follow up ? for osteoarthritic pain History of Present Illness Primary Care Provider: Adrienne Braun MD 35 YOF with past medical history of: Anxiety, Anemia, arthritis, allergic rhinitis, asthma, migraine, chronic pain, graves disease. Patient was referred in to the EMD from her PCP where she was originally being worked up for dizziness, headache and vertigo like symptoms and dyspnea. She was prescribed meclizine and had a D-dimer ordered that returned at level of 540, for this she was referred to the EMD for CT scan of the chest to rule out PE. In the EMD she had a CT scan of the head, CTA of the neck and head performed. CTA of the head and neck were negative. CTA of the chest has a question of a filling defect within the left atrial appendage as either flow artifact or represent a thrombus. MRI of the brain was performed to rule out CVA in regards to this finding. MRI was negative for CVA. Patient will be admitted, started on Heparin drip, NPO after midnight for SONG evaluation. Cardiology has been consulted and anesthesia consulted. Patient has a history of a upper arm DVT in 2014 following PICC line insertion in [place] for status migrainous admission. She was on Coumadin at that time and completed her therapy in 09/25, has not been on anticoagulation since then. She is not on OCP since 2015 clot, and does not smoke. She did have a positive KINA in 2018. She has no history of atrial fibrillation that she knows of, she only recalls one period where she has felt her heart rate was out of control and that was back prior to 2009 when she was getting worked up for Grave's Disease, where she saw Dr. Romero through cardiology. She gets conscious sedation for her dental cleanings and she reports that she has not had any issues. For the patient's dizziness and headache- the meclizine she was prescribe she did not feel to help. Her symptoms are when she is up and moving around and feels as pressure deep in her head, which could be consistent with her sinuses or eustachian tube dysfunction, she has been having some PND and scratchy throats in the morning. For her dyspnea that she was experiencing this was relieved with her albuterol inhalers and associated with the PND she was having as well as tickle in her throat. Following her acute work-up for the incidental possible left atrial thrombus can re-visit these. Allergies Allergy/AdvReac Type Severity Reaction Status Date / Time pollen extracts Allergy Intermediate asthma Verified 12/09/20 10:56 sumatriptan Allergy Intermediate unknown Verified 12/09/20 10:56 aspirin Allergy Mild Unknown Verified 12/09/20 10:56 bacitracin Allergy Mild HIVES Verified 12/09/20 10:56 divalproex sodium Allergy Mild Unknown Verified 12/09/20 10:56 [From Depakote] doxycycline Allergy Mild GI SYMPTOMS Verified 12/09/20 10:56 neomycin Allergy Mild HIVES Verified 12/09/20 10:56 polymyxin B Allergy Mild HIVES Verified 12/09/20 10:56 povidone-iodine Allergy Mild HIVES Verified 12/09/20 10:56 soap [From Betadine] Allergy Mild Unknown Verified 12/09/20 10:56 animal dander Allergy Unknown . Verified 12/09/20 10:56 levofloxacin Allergy Unknown itchy/breathing Verified 12/09/20 10:56 difficulty topiramate [From Topamax] Allergy Unknown Verified 12/09/20 10:56 eletriptan AdvReac Intermediate neck Verified 12/09/20 10:56 stiffness [id number]-vfrm AdvReac Intermediate welt and Verified 12/09/20 10:56 [From Ajovy] itching lamotrigine [From Lamictal] AdvReac Intermediate Headache Verified 12/09/20 10:56 zonisamide [From Zonegran] AdvReac Mild Nausea Verified 12/09/20 10:56 ADHESIVE AdvReac Unknown erthema Uncoded 12/09/20 10:56 Home Medications Medication Instructions Recorded Confirmed Type cyanocobalamin (vitamin B-12) 1,000 mcg PO DAILY tab 03/30/19 12/09/20 History 1,000 mcg tablet,extended release olopatadine 0.7 % eye drops 1 drp OPB DAILY 03/30/19 12/09/20 History albuterol sulfate 2.5 mg INHALATION Q4H PRN #3 ml 07/25/19 12/09/20 Rx lorazepam 1 mg tablet 1 mg PO BID PRN #30 tab 07/29/19 12/09/20 Rx albuterol sulfate 90 mcg/actuation 2 puffs INH Q4H PRN #18 gm 11/24/19 12/09/20 Rx aerosol inhaler pantoprazole 40 mg tablet,delayed 40 mg PO DAILY #90 tab 11/24/19 12/09/20 Rx release fexofenadine 180 mg tablet 180 mg PO PM 02/24/20 12/09/20 History cholecalciferol (vitamin D3) 50 5,000 unit PO DAILY cap 08/20/20 12/09/20 History mcg (2,000 unit) capsule ondansetron 4 mg disintegrating 4 mg PO ONCE PRN #30 tab 09/30/20 12/09/20 Rx tablet promethazine 25 mg tablet 25 mg PO ONCE PRN #30 tab 09/30/20 12/09/20 Rx meclizine 25 mg tablet 25 mg PO TID PRN #60 tab 12/08/20 12/09/20 Rx ferrous sulfate 27 mg iron tablet 0 mg PO Q OTHER DAY 12/09/20 12/09/20 History ibuprofen 200 mg tablet 400 mg PO QAM PRN 12/09/20 12/09/20 History levocetirizine 5 mg tablet 5 mg PO DAILY 12/09/20 12/09/20 History tizanidine 2 mg tablet 2 - 4 mg PO BID PRN 12/09/20 12/09/20 History tramadol 50 mg tablet 50 mg PO BID PRN 12/09/20 12/09/20 History Past Med/Surg History Medical History (Updated 12/09/20 @ 16:52 by Ángel Harris DO) Acute deep vein thrombosis of right upper extremity Asthma Chronic GERD Depression with anxiety Dislocation of left hip Dysmenorrhea Fecal retention Generalized hypermobility of joints Graves disease Hypothyroidism Irritable bowel syndrome Migraines Morbid obesity Vertigo Surgical History H/O wisdom tooth extraction S/P laparoscopic procedure 2011, neg for pelvic pain Family History Father Dyslipidemia Hypertension Diabetes Mother Hypertension Glaucoma Breast cancer age 60's Diabetes Asthma Grandmother (Paternal) Breast cancer Denies family history of Ovarian cancer Colorectal cancer Social History Smoking Status: Never smoker Hx Alcohol Use: No Hx Substance Use: No Preferred Language: Niuean Communication Ability: Effective Visual Impairment: No Limitations Hearing Ability: Normal Beliefs That Will Affect Care: None marital status: single Current Living Situation: Parent current occupational status: student Feels Safe at Home: Yes Assistive Devices: Glasses Review of Systems Review of Systems: REVIEW OF SYSTEMS: Constitutional: No fever, sweats or chills Eyes: No diplopia, no worsening or blurred vision Head: (+) tension headaches to back of neck and migraine to tops of the head, currently no headache ENT: normal hearing, no trouble swallowing Respiratory: No cough, sputum, dyspnea at rest or on exertion Cardiovascular: No chest pain, tightness or palpitations Abdomen: No pain, nausea, vomiting, diarrhea or constipation Musculoskeletal: (+) chronic knee joint pain, calf pain, swelling Neurologic: No weakness, numbness/tingling, or balance problems Psychiatric: No anxiety or depression Skin: No rash or itch Physical Exam Physical Exam: PHYSICAL EXAM: General: awake, alert, no apparent distress Head: Normocephalic, atraumatic, some cervical neck tightness, but full range of motion with out tenderness ENT: PERRLA, EOMI, no pharyngeal exudate, mucous membranes moist Neuro: AAO x 3, speech clear and appropriate, strength intact bilaterally 5/5, sensation intact and equal all extremities and dermatomes, no pronator drift Chest: equal rise and fall of the chest, no accessory muscle use, no heaves or thrills, Clear to auscultation, on room air, Cardiac: Regular rate and rhythm, telemetry reviewed- NSR, skin warm dry, cap refill <3 seconds, peripheral pulses +2 no JVD, no murmur, no edema GI: NABS x 4 quadrants, soft, nontender to palpation, no rebound, guarding or tenderness : Spontaneously voiding, no pain, no CVA tenderness, Extremities: Normal inspection, no peripheral edema or erythema, calfs nontender to palpation Psych: Normal mood and affect Skin: no rash or erythema Results & Data Results & Data ([facility] [place]) Vital Signs (Past 12 Hours) Vital Signs Temp Pulse Pulse Resp BP BP Pulse Ox 12/09/20 13:00 87 20 154/89 H 97 12/09/20 11:25 142/88 H 12/09/20 09:29 36.5 C 82 18 142/87 H 99 Laboratory Results Abnormal lab results 12/09/20 12/09/20 Range/Units 10:45 10:45 MCV 78.2 L (80-100) fL MCH 24.4 L (25-34) pg MCHC 31.3 L (32-36) g/dL RDW Std Deviation 47.8 H (36.4-46.3) fL RDW Coeff of [place] 16.7 H (11.5-14.5) % MPV 10.5 H (7.4-10.4) fL [place] # (Auto) 0.70 H (0.11-0.59) K/uL Chloride 111 H (98-107) mmol/L Anion Gap 2.0 L (3-11) BUN/Creatinine Ratio 8.0 L (10-20) Glucose 106 H (70-99) mg/dl AST 13 L (15-37) U/L Albumin 3.3 L (3.4-5.0) gm/dl Diagnostic Findings Chest CTA 12/09/20 09:53 CT ANGIOGRAM OF THE CHEST CLINICAL HISTORY: sent by PCP for CT chest due to elevated dimer COMPARISON STUDY: November 30, 2013 TECHNIQUE: Following the IV administration of 120 mL of Optiray, CT angiogram of the thorax was performed from the thoracic inlet to the lung bases utilizing the pulmonary embolus protocol. Images are reviewed in the axial, sagittal, and cor onal planes. IV contrast was administered without complication. MIP imaging was performed. A dose lowering technique was utilized adhering to the principles of ALARA. CT DOSE: FINDINGS: There is adequate opacification within main pulmonary artery. Evaluation of peripheral branches of pulmonary artery is limited due to motion artifact. Also significant beam hardening artifact due to patient body habitus significantly limits evaluation. No evidence of central pulmonary embolus. Main pulmonary artery is within upper limits of normal for size. No evidence of right heart strain. Heart is within upper limits of normal without evidence of pericardial effusion. No coronary calcifications are seen. Incidental findings of the filling defect within left atrial appendage which could represent small thrombus or flow artifact (301/94) No pathologically enlarged axillary mediastinal or hilar lymph nodes were visualized. There was no evidence of thoracic aortic dilatation. Trachea bronchial tree is patent. Patchy groundglass opacities are seen at dependent portions of bilateral lower lobes likely representing mild atelectasis. No large infiltrates or consolidative lesions are seen. No pleural effusions are visualized. Limited evaluation of upper abdominal viscera shows no definite acute abnormalities however evaluation is limited due to beam hardening artifact. Osseous structures: No significant abnormalities are seen in this slightly limited exam. IMPRESSION: 1. No evidence of central pulmonary embolus. No right heart strain is seen. Pulmonary artery is within upper limits of normal which could be seen in pulmonary hypertension. 2. Incidental finding of the focal filling defect within left atrial appendage which could be due to flow artifact or represent thrombus. Further evaluation with echocardiography is suggested. Report will be sent to ordering physician office. 3. Mild atelectasis at dependent portions of bilateral lower lobes. 4. The rest of findings as above. ACT 112: Negative or not required by law. The above report was generated using voice recognition software. It may contain grammatical, syntax or spelling errors. Electronically signed by: Hyun Powell DO 12/09/2020 12:[address] 12/09/20 09:[address] DOSE: HISTORY: vertigo TECHNIQUE: Multiaxial CT images of the head were performed without the use of intravenous contrast. Automated exposure control was utilized for this study. A dose lowering technique was utilized adhering to the principles of ALARA. Comparison: None. Findings: The paranasal sinuses and mastoid air cells are clear. The calvarium and skull base are intact. The ventricles and sulci are within normal limits. Th ere is no mass, hematoma, midline shift, or acute infarct. Impression: No acute intracranial abnormality. ACT 112: Negative or not required by law. Electronically signed by: Je Rose M.D. 12/09/2020 12:08 PM Head CTA 12/09/20 09:53 HEAD & NECK CTA HISTORY: vertigo TECHNIQUE: Multiaxial CT images of the head were performed the intravenous administration of contrast to evaluate the major cerebral vessels. Multiaxial CT images of the neck were also performed following the intravenous administration of contrast to evaluate the major cervical vessels. Maximum intensity projection images were also obtained. A dose lowering technique was utilized adhering to the principles of ALARA. COMPARISON: None. FINDINGS: There is no mass, hematoma, midline shift, or acute infarct. Visualized intracranial internal carotid arteries, distal vertebral arteries, and basilar artery are widely patent. There is no significant stenosis, occlusion, or aneurysm seen within the bilateral ACAs, MCAs, or medical technician assistant. The major dural venous sinuses are patent. The aortic arch and proximal great vessels are widely patent. There is no significant stenosis, occlusion, or dissection identified within the bilateral common carotid, internal carotid, or vertebral arteries. IMPRESSION: 1. No significant stenosis, occlusion, or aneurysm within the [place]. 2. No significant stenosis, occlusion, or dissection identified within the carotid or vertebral arteries. ACT 112: Negative or not required by law. Electronically signed by: Je Rose M.D. 12/09/2020 12:12 PM Neck CTA 12/09/20 09:53 HEAD & NECK CTA HISTORY: vertigo TECHNIQUE: Multiaxial CT images of the head were performed the intravenous administration of contrast to evaluate the major cerebral vessels. Multiaxial CT images of the neck were also performed following the intravenous administration of contrast to evaluate the major cervical vessels. Maximum intensity projection images were also obtained. A dose lowering technique was utilized adhering to the principles of ALARA. COMPARISON: None. FINDINGS: There is no mass, hematoma, midline shift, or acute infarct. Visualized intracranial internal carotid arteries, distal vertebral arteries, and basilar artery are widely patent. There is no significant stenosis, occlusion, or aneurysm seen within the bilateral ACAs, MCAs, or medical technician assistant. The major dural venous sinuses are patent. The aortic arch and proximal great vessels are widely patent. There is no significant stenosis, occlusion, or dissection identified within the bilateral common carotid, internal carotid, or vertebral arteries. IMPRESSION: 1. No significant stenosis, occlusion, or aneurysm within the [place]. 2. No significant stenosis, occlusion, or dissection identified within the carotid or vertebral arteries. ACT 112: Negative or not required by law. Electronically signed by: Je Rose M.D. 12/09/2020 12:12 PM Brain MRI 12/09/20 13:14 MRI OF THE BRAIN WITHOUT CONTRAST CLINICAL HISTORY: vertigo COMPARISON STUDY: None. FINDINGS: Sagittal T1, axial diffusion, proton density and T2 weighted axial, coronal FLAIR, and axial T1-weighted images were acquired. No intra or extra-axial mass lesions are visualized Axial diffusion-weighted images reveal no evidence of acute or subacute infarction. There is no evidence of ventricular dilatation. Proton density T2-weighted and FLAIR images reveal no abnormalities. There are no abnormal flow voids. IMPRESSION: Normal study. ACT 112: Negative or not required by law. The above report was generated using voice recognition software. It may contain grammatical, syntax or spelling errors. Electronically signed by: Hyun Powell DO 12/09/2020 2:31 PM Medications Administered Home Medications cyanocobalamin (vitamin B-12) 1,000 mcg tablet,extended release 1,000 mcg PO DAILY tab 03/30/19 [History Confirmed 12/09/20] olopatadine 0.7 % eye drops 1 drp OPB DAILY 03/30/19 [History Confirmed 12/09/20] albuterol sulfate 2.5 mg INHALATION Q4H PRN #3 ml 07/25/19 [Rx Confirmed 12/09/20] lorazepam 1 mg tablet 1 mg PO BID PRN #30 tab 07/29/19 [Rx Confirmed 12/09/20] albuterol sulfate 90 mcg/actuation aerosol inhaler 2 puffs INH Q4H PRN #18 gm 11/24/19 [Rx Confirmed 12/09/20] pantoprazole 40 mg tablet,delayed release 40 mg PO DAILY #90 tab 11/24/19 [Rx Confirmed 12/09/20] fexofenadine 180 mg tablet 180 mg PO PM 02/24/20 [History Confirmed 12/09/20] cholecalciferol (vitamin D3) 50 mcg (2,000 unit) capsule 5,000 unit PO DAILY cap 08/20/20 [History Confirmed 12/09/20] ondansetron 4 mg disintegrating tablet 4 mg PO ONCE PRN #30 tab 09/30/20 [Rx Confirmed 12/09/20] promethazine 25 mg tablet 25 mg PO ONCE PRN #30 tab 09/30/20 [Rx Confirmed 12/09/20] meclizine 25 mg tablet 25 mg PO TID PRN #60 tab 12/08/20 [Rx Confirmed 12/09/20] ferrous sulfate 27 mg iron tablet 0 mg PO Q OTHER DAY 12/09/20 [History C onfirmed 12/09/20] ibuprofen 200 mg tablet 400 mg PO QAM PRN 12/09/20 [History Confirmed 12/09/20] levocetirizine 5 mg tablet 5 mg PO DAILY 12/09/20 [History Confirmed 12/09/20] tizanidine 2 mg tablet 2 - 4 mg PO BID PRN 12/09/20 [History Confirmed 12/09/20] tramadol 50 mg tablet 50 mg PO BID PRN 12/09/20 [History Confirmed 12/09/20] Active Medications Heparin Sodium (Porcine) (Heparin Sod (Porcine) 1000 Unit/Ml) 1 units IV NOW ONE Stop: 12/09/20 15:07 Heparin Sodium/Dextrose (Heparin Sodium/Dextrose) 25,000 units in 500 mls @ 0.02 mls/hr IV .Q24H [facility]; Protocol Stop: 01/08/21 15:14 ECG Additional Comments: Normal sinus rhythm Low voltage QRS Borderline ECG When compared with ECG of 30-NOV-2013 18:39, No significant change was found Confirmed by Paramjit Leon ([id number]) on 12/09/2020 2:22:27 PM Code Status & VTE Plan Code Status CODE: FULL VTE: SCD's, ambulation, Heparin Supervising Physician Co-Signing Physician Notes Patient seen and examined, chart reviewed, case discussed with RANJITH Larsen and I agree with his assessment and plan as above. In brief, patient is a 35yo female with history of hypothyroidism, GERD, remote history of provoked UE DVT in setting of PICC line s/p anticoagulation presenting at the request of her PCP with symptoms of dizziness, [place] and vertigo as well as dyspnea. Found with elevated d-dimer which prompted CTPA to rule out PE. CT revealed a filling defect in LAE concerning for possible thrombus. On exam she is afebrile, HD stable, NAD Skin - warm, dry, intact, no rashes/lesions. No lesions on fingertips or nails HEENT - NC/AT, PERRL, MMM, neck supple Heart - +S1/S2, regular, no m/r/g, no bruits Lungs - CTA Abd - +BS, soft, NT/ND Ext - No edema Labs and images reviewed Assessment/Plan - ?thrombus present in LAE vs artifact. Stroke workup performed in ER which was unremarkable. DDx to include thrombus, neoplasm, less likely infection, ?artifact -Heparin gtt -NPO -Plan for SONG in AM to further assess finding in LAE -Remainder of plan as above PG Care Time/CCT Total # of Minutes Spent Total Time Spent with Patient: Total time spent is greater than 50% in coordination of care (as documented) at patient's floor/unit and/or counseling patient: Coding Level of Care Code 48359 Initial Inpt Care Lvl 3 Diagnoses Left atrial thrombus I51.3 Dyspnea R06.00 Headache R51.9 Tension headache G44.209 Asthma J45.909 Morbid obesity E66.01 Depression with anxiety F41.8 Hypothyroidism E03.9 Osteoarthritis of knees, bilateral M17.0 Positive KINA (antinuclear antibody) R76.8
--- NOTE | 2020-12-09 14:22 | Electrocardiogram Report ---
Test Reason : Blood Pressure : / mmHG Vent. Rate : 076 BPM Atrial Rate : 076 BPM P-R Int : 146 ms QRS Dur : 092 ms QT Int : 388 ms P-R-T Axes : 019 018 014 degrees QTc Int : 436 ms Normal sinus rhythm Low voltage QRS Borderline ECG When compared with ECG of 30-NOV-2013 18:39, No significant change was found Confirmed by Paramjit Leon ([id number]) on 12/09/2020 2:22:27 PM Referred By: REFERRED SELF Confirmed By:Paramjit Leon
--- NOTE | 2020-12-09 14:33 | Magnetic Resonance Report ---
MRI OF THE BRAIN WITHOUT CONTRAST CLINICAL HISTORY: vertigo COMPARISON STUDY: None. FINDINGS: Sagittal T1, axial diffusion, proton density and T2 weighted axial, coronal FLAIR, and axial T1-weigh [place] images were acquired. No intra or extra-axial mass lesions are visualized Axial diffusion-weighted images reveal no evidence of acute or subacute infarction. There is no evidence of ventricular dilatation. Proton density T2-weighted and FLAIR images reveal no abnormalities. There are no abnormal flow voids. IMPRESSION: Normal study. ACT 112: Negative or not required by law. The above report was generated using voice recognition software. It may contain grammatical, syntax o r spelling errors. Electronically signed by: Hyun Powell DO 12/09/2020 2:31 PM
[2020-12-09] MEDS ORDERED: Heparin IV Adult Wt-Based Standard WITH Bolus Protocol IV STA (14:49)
[2020-12-09] MEDS ORDERED: HEPARIN SOD (PORCINE) 1000 UNIT/ML IV ONE (15:06)
[2020-12-09 15:33] LABS: Prothrombin Time 10.4 Seconds (9.0-12.0)
[2020-12-09 15:54] LABS: Appearance Urine Clear (Clear); Bilirubin Urine Negative (Negative); Blood Urine Negative (Negative); Color Urine Yellow; Glucose Urine UA Negative (Negative); Ketones Urine Negative (Negative); Leukocyte Esterase Urine Negative (Negative); Nitrite Urine Negative (Negative); Protein Urine Negative (Negative); Specific Gravity Urine > 1.045 (1.000-1.030); Urobilinogen Urine Negative (Negative); pH Urine 5.5 (4.5-7.5)
--- NOTE | 2020-12-09 16:38 | Anesthesiology Consultation ---
Date of Service December 09, 2020 Assessment & Plan (1) Encounter for pre-operative examination: Chart Review Chart Review: Acceptable Risk for Surgery History Height/Weight Height: 5 ft 6 in Weight: 130.2 kg Allergies Allergy/AdvReac Type Severity Reaction Status Date / Time pollen extracts Allergy Intermediate asthma Verified 12/09/20 10:56 sumatriptan Allergy Intermediate unknown Verified 12/09/20 10:56 aspirin Allergy Mild Unknown Verified 12/09/20 10:56 bacitracin Allergy Mild HIVES Verified 12/09/20 10:56 divalproex sodium Allergy Mild Unknown Verified 12/09/20 10:56 [From Depakote] doxycycline Allergy Mild GI SYMPTOMS Verified 12/09/20 10:56 neomycin Allergy Mild HIVES Verified 12/09/20 10:56 polymyxin B Allergy Mild HIVES Verified 12/09/20 10:56 povidone-iodine Allergy Mild HIVES Verified 12/09/20 10:56 soap [From Betadine] Allergy Mild Unknown Verified 12/09/20 10:56 animal dander Allergy Unknown . Verified 12/09/20 10:56 levofloxacin Allergy Unknown itchy/breathing Verified 12/09/20 10:56 difficulty topiramate [From Topamax] Allergy Unknown Verified 12/09/20 10:56 eletriptan AdvReac Intermediate neck Verified 12/09/20 10:56 stiffness [id number]-vfrm AdvReac Intermediate welt and Verified 12/09/20 10:56 [From Ajovy] itching lamotrigine [From Lamictal] AdvReac Intermediate Headache Verified 12/09/20 10:56 zonisamide [From Zonegran] AdvReac Mild Nausea Verified 12/09/20 10:56 ADHESIVE AdvReac Unknown erthema Uncoded 12/09/20 10:56 Medications Home Medications Medication Instructions Recorded Confirmed Last Taken cyanocobalamin (vitamin B-12) 1,000 mcg PO DAILY tab 03/30/19 12/09/20 12/09/20 1,000 mcg tablet,extended release olopatadine 0.7 % eye drops 1 drp OPB DAILY 03/30/19 12/09/20 12/09/20 albuterol sulfate 2.5 mg INHALATION Q4H PRN #3 ml 07/25/19 12/09/20 Unknown lorazepam 1 mg tablet 1 mg PO BID PRN #30 tab 07/29/19 12/09/20 Unknown albuterol sulfate 90 mcg/actuation 2 puffs INH Q4H PRN #18 gm 11/24/19 12/09/20 Unknown aerosol inhaler pantoprazole 40 mg tablet,delayed 40 mg PO DAILY #90 tab 11/24/19 12/09/20 12/09/20 release fexofenadine 180 mg tablet 180 mg PO PM 02/24/20 12/09/20 12/08/20 cholecalciferol (vitamin D3) 50 5,000 unit PO DAILY cap 08/20/20 12/09/20 12/09/20 mcg (2,000 unit) capsule ondansetron 4 mg disintegrating 4 mg PO ONCE PRN #30 tab 09/30/20 12/09/20 Unknown tablet promethazine 25 mg tablet 25 mg PO ONCE PRN #30 tab 09/30/20 12/09/20 Unknown meclizine 25 mg tablet 25 mg PO TID PRN #60 tab 12/08/20 12/09/20 12/09/20 ferrous sulfate 27 mg iron tablet 0 mg PO Q OTHER DAY 12/09/20 12/09/20 12/09/20 ibuprofen 200 mg tablet 400 mg PO QAM PRN 12/09/20 12/09/20 12/09/20 levocetirizine 5 mg tablet 5 mg PO DAILY 12/09/20 12/09/20 12/09/20 tizanidine 2 mg tablet 2 - 4 mg PO BID PRN 12/09/20 12/09/20 12/08/20 tramadol 50 mg tablet 50 mg PO BID PRN 12/09/20 12/09/20 12/08/20 Past Medical History Medical History (Updated 12/09/20 @ 16:38 by Cedrick Marley MD) Acute deep vein thrombosis of right upper extremity Asthma Chronic GERD Depression with anxiety Dislocation of left hip Dysmenorrhea Fecal retention Generalized hypermobility of joints Graves disease Hypothyroidism Irritable bowel syndrome Migraines Morbid obesity Vertigo Past Family History Family History Father Dyslipidemia Hypertension Diabetes Mother Hypertension Glaucoma Breast cancer age 60's Diabetes Asthma Grandmother (Paternal) Breast cancer Denies family history of Ovarian cancer Colorectal cancer Past Surgical History Surgical History H/O wisdom tooth extraction S/P laparoscopic procedure 2011, neg for pelvic pain Social History Smoking Status: Never smoker Hx Alcohol Use: No Hx Substance Use: No Physical Exam Vital Signs Last Vital Signs Temp 36.5 C 12/09/20 09:29 Pulse 81 12/09/20 15:33 Resp 20 12/09/20 15:33 BP 163/99 H 12/09/20 15:33 Pulse Ox 94 12/09/20 15:33 Testing Laboratory Results 12/09/20 10:45 12/09/20 10:45 PT 10.4 Seconds (9.0-12.0) 12/09/20 15:13 INR 1.0 (0.9-1.1) 12/09/20 15:13 Urine Color Yellow 12/09/20 15:43 Urine Appearance Clear (Clear) 12/09/20 15:43 Urine pH 5.5 (4.5-7.5) 12/09/20 15:43 Ur Specific [place] > 1.045 (1.000-1.030) H 12/09/20 15:43 Urine Protein Negative (Negative) 12/09/20 15:43 Urine Glucose (UA) Negative (Negative) 12/09/20 15:43 Urine Ketones Negative (Negative) 12/09/20 15:43 Urine Nitrite Negative (Negative) 12/09/20 15:43 Ur Leukocyte Esterase Negative (Negative) 12/09/20 15:43 Electrocardiogram Date: 12/09/20 Findings: + NSR @ (69)
[2020-12-09] MEDS ORDERED: ALBUTEROL 0.083% NEBU SOLN 3 ML VIAL INH PRN (16:53)
[2020-12-09] MEDS ORDERED: PROMETHAZINE HCL 25 MG TAB PO PRN (16:53)
[2020-12-09] MEDS ORDERED: ALBUTEROL HFA 8 GM INHALER INH PRN (16:53)
[2020-12-09] MEDS ORDERED: tiZANidine HCL 4 MG TABLET PO PRN (16:53)
[2020-12-09] MEDS ORDERED: LORazepam 1 MG TAB PO PRN (17:18)
[2020-12-09] MEDS ORDERED: ONDANSETRON 4 MG OD TAB PO PRN (17:24)
[2020-12-09] MEDS ORDERED: HEPARIN IV BOLUS 7,000 UNITS in SYRINGE 0 ML IV ONE (18:45)
[2020-12-09] MEDS: HEPARIN SODIUM/DEXTROSE 25,000 UNITS/500 ML BAG IV SCH (19:00)
[2020-12-09] MEDS ORDERED: FEXOFENADINE HCL 180 MG TAB PO SCH (21:00)
[2020-12-10 01:49] LABS: Partial Thromboplastin Ratio 2.3
[2020-12-10 01:52] LABS: Partial Thromboplastin Time 60.7 Seconds (21.0-31.0)
[2020-12-10] MEDS ORDERED: LORazepam 1 MG/2 ML VIAL IV STA (02:16)
[2020-12-10] MEDS ORDERED: LIDOCAINE 2% 2 ML VIAL/AMP(20MG/ML) INFIL ONE (06:45)
[2020-12-10] MEDS ORDERED: PROPOFOL IV EMULSION 10 MG/ML 20 ML VIAL IV ONE ×2 (06:45→06:46)
[2020-12-10] MEDS ORDERED: MIDAZOLAM HCL 1 MG/ML 2ML VIAL ONE (06:46)
[2020-12-10] MEDS ORDERED: CYANOCOBALAMIN 500 MCG TABLET (VITAMIN B-12) PO SCH (09:00)
[2020-12-10] MEDS ORDERED: LORATADINE 10 MG TAB PO SCH (09:00)
[2020-12-10] MEDS ORDERED: PANTOprazole 40 MG TAB PO SCH (09:00)
[2020-12-10 09:12] LABS: Basophils # (auto) 0.03 K/uL (0-0.2); Basophils % (auto) 0.3 %; Eosinophils # (auto) 0.29 K/uL (0-0.5); Eosinophils % (auto) 3.3 %; Hematocrit (blood only) 39.3 % (37-47); Hemoglobin 12.5 g/dL (12.0-16.0); Immature Granulocytes # (auto) 0.02 K/uL (0.00-0.02); Immature Granulocytes % (auto) 0.2 %; Lymphocytes # (auto) 2.48 K/uL (1.2-3.4); Lymphocytes % (auto) 28.1 %; Mean Corpuscular Hemoglobin 25.1 pg (25-34); Mean Corpuscular Hgb Conc 31.8 g/dL (32-36); Mean Corpuscular Volume 78.8 fL (80-100); Mean Platelet Volume 11.2 fL (7.4-10.4); Monocytes # (auto) 0.53 K/uL (0.11-0.59); Neutrophils # (auto) 5.46 K/uL (1.4-6.5); Neutrophils % (auto) 62.1 %; Platelet Count 281 K/uL (130-400); RDW Coefficient of Variation 16.8 % (11.5-14.5); Red Blood Count 4.99 M/uL (4.2-5.4); White Blood Count 8.81 K/uL (4.8-10.8)
[2020-12-10] MEDS: HEPARIN SODIUM/DEXTROSE 25,000 UNITS/500 ML BAG IV SCH (09:28)
[2020-12-10] MEDS ORDERED: ACETAMINOPHEN 1,000 MG/100 ML VIAL IV STA (09:43)
[2020-12-10 09:52] LABS: BUN Creatinine Ratio 7.9 (10-20); Calcium 8.7 mg/dl (8.5-10.1); Creatinine Clr Calc Pharmacy 114.4 ml/min; Est GFR (African American) 91.6 ml/min; Est GFR (Non-African American) 79.1 ml/min; Magnesium 2.3 mg/dl (1.8-2.4); Potassium 3.7 mmol/L (3.5-5.1)
--- NOTE | 2020-12-10 09:53 | Electrocardiogram Report ---
Test Reason : Blood Pressure : / mmHG Vent. Rate : 073 BPM Atrial Rate : 073 BPM P-R Int : 152 ms QRS Dur : 092 ms QT Int : 396 ms P-R-T Axes : 015 006 003 degrees QTc Int : 436 ms Normal sinus rhythm Normal ECG When compared with ECG of 09-DEC-2020 10:23, No significant change was found Confirmed by Paramjit Leon ([id number]) on 12/10/2020 9:53:07 AM Referred By: REFERRED SELF Confirmed By:Paramjit Leon
--- NOTE | 2020-12-10 10:00 | Hospitalist Progress Note ---
Date of Service December 10, 2020 Assessment & Plan (1) Left atrial thrombus: Plan: Incidental on CTA of the chest- Rule out with SONG in the morning. - Heparin drip with bolus - NPO after midnight - Cards consulted - Anesthesia consulted - Telemetry overnight - ECG normal - no murmur (2) Dyspnea: Plan: As per HPI relieved with her Albuterol - continue inhaler - Follow with activity and while in house - CTA of the chest negative for PE (3) Headache: Plan: Tension with migraines - continue abortive therapy- chronic follows with neurology as outpatient (4) Tension headache: Plan: As above - heat and Tylenol (5) Asthma: Plan: As above, patient feels symptoms are controlled (6) Morbid obesity: Plan: Continue with outpatient weight loss strategies (7) Depression with anxiety: Plan: No acute needs - Continue with Ativan prn (8) Hypothyroidism: Plan: Has been off synthroid for "quite a while" - Follows with PCP- T4 1.18 TSH 2-3 over last couple years (9) Osteoarthritis of knees, bilateral: Plan: Follows with ortho for injections - usually controlled with Tylenol - She uses Tramadol for severe pain- held (10) Positive KINA (antinuclear antibody): Plan: 2018- Homogeneous A- - unaware of reasoning or follow up ? for osteoarthritic pain Admission and Anticipated Discharge Date Admission Date: December 09, 2020 Review of Systems Review of Systems: REVIEW OF SYSTEMS: Constitutional: No fever, sweats or chills Eyes: No diplopia, no worsening or blurred vision Head: (+) tension headaches to back of neck and migraine to tops of the head, currently no headache ENT: normal hearing, no trouble swallowing Respiratory: No cough, sputum, dyspnea at rest or on exertion Cardiovascular: No chest pain, tightness or palpitations Abdomen: No pain, nausea, vomiting, diarrhea or constipation Musculoskeletal: (+) chronic knee joint pain, calf pain, swelling Neurologic: No weakness, numbness/tingling, or balance problems Psychiatric: No anxiety or depression Skin: No rash or itch Physical Exam Physical Exam: PHYSICAL EXAM: General: awake, alert, no apparent distress Head: Normocephalic, atraumatic, some cervical neck tightness, but full range of motion with out tenderness ENT: PERRLA, EOMI, no pharyngeal exudate, mucous membranes moist Neuro: AAO x 3, speech clear and appropriate, strength intact bilaterally 5/5, sensation intact and equal all extremities and dermatomes, no pronator drift Chest: equal rise and fall of the chest, no accessory muscle use, no heaves or thrills, Clear to auscultation, on room air, Cardiac: Regular rate and rhythm, telemetry reviewed- NSR, skin warm dry, cap refill <3 seconds, peripheral pulses +2 no JVD, no murmur, no edema GI: NABS x 4 quadrants, soft, nontender to palpation, no rebound, guarding or tenderness : Spontaneously voiding, no pain, no CVA tenderness, Extremities: Normal inspection, no peripheral edema or erythema, calfs nontender to palpation Psych: Normal mood and affect Skin: no rash or erythema Results & Data Results & Data ([facility]) Vital Signs (Past 12 Hours) Vital Signs Temp Pulse Pulse Resp BP Pulse Ox 12/10/20 07:36 36.6 C 94 H 18 101/67 99 12/10/20 07:24 36.4 C L 93 H 18 113/74 99 12/10/20 06:20 87 12/10/20 03:57 36.6 C 92 H 20 117/81 96 12/09/20 23:40 88 12/09/20 23:27 36.8 C 92 H 18 134/81 93
--- NOTE | 2020-12-10 12:23 | Medical Student Progress Note ---
Date of Service December 10, 2020 Assessment & Plan (1) Left atrial thrombus: Plan: - Potential incidental finding on CTA of the chest: thrombus vs. artifact - Rule out with SONG today - Cardiac PE: RRR, no RMG - No acute cardiac events overnight on telemetry - Continue Heparin drip with bolus, NPO - Cards & Anesthesia consulted - Continue telemetry monitoring (2) Dyspnea: Plan: - As per HPI relieved with her Albuterol - CTA of the chest negative for PE - Continue home inhaler - Monitor throughout hospitalization (3) Headache: Plan: - Tension vs. migraines vs. both - Continue home abortive therapy - Follows with neurology as outpatient (4) Tension headache: Plan: - As above - Tylenol and heat PRN (5) Asthma: Plan: As above, patient feels symptoms are controlled (6) Morbid obesity: Plan: - Continue with outpatient weight loss strategies (7) Depression with anxiety: Plan: - Continue with Ativan prn (8) Hypothyroidism: Plan: - Has been off synthroid for "quite a while" - Follows with PCP- T4 1.18 TSH 2-3 over last couple years - TSH 2.3 (9) Osteoarthritis of knees, bilateral: Plan: - Follows with ortho for injections - Usually controlled with Tylenol - She uses Tramadol for severe pain- held (10) Positive KINA (antinuclear antibody): Plan: 2018- Homogeneous A- - unaware of reasoning or follow up ? for osteoarthritic pain Admission and Anticipated Discharge Date Admission Date: December 09, 2020 Subjective Overall, patient is doing well and lying comfortably in bed during the interview. She is complaining of a slight headache and some lightheadedness/"disconnectedness" that feels "like you're about to go under". She has a mild cough that she attributes to the dry air in the hospital. Her nurse is about to bring her some Tylenol for the headache and she believes it will help. Patient does not endorse any chest pain or palpitations. Review of Systems Review of Systems: All systems reviewed & are unremarkable except as noted in Subjective Physical Exam Physical Exam: PHYSICAL EXAM: General: awake, alert, no apparent distress Cardiac: Regular rate and rhythm, telemetry reviewed- NSR, skin warm dry, cap refill <3 seconds, peripheral pulses +2 no JVD, no murmur, no edema Pulm: equal rise and fall of the chest, no accessory muscle use, no heaves or thrills, mild expiratory wheeze bilaterally Neuro: A & O x 3, speech clear and appropriate, strength intact bilaterally 5/5, sensation intact and equal in lower extremities Head: Normocephalic, atraumatic, some cervical neck tightness Extremities: Normal inspection, no peripheral edema or erythema, calfs nontender to palpation Results & Data ([facility]) Vital Signs (Past 12 Hours) Vital Signs Temp Pulse Pulse Resp BP Pulse Ox 12/10/20 11:29 36.9 C 74 20 128/84 92 12/10/20 11:23 36.6 C 78 18 136/85 96 12/10/20 07:36 36.6 C 94 H 18 101/67 99 12/10/20 07:24 36.4 C L 93 H 18 113/74 99 12/10/20 06:20 87 12/10/20 03:57 36.6 C 92 H 20 117/81 96 Laboratory Results Laboratory Results WBC 8.81 K/uL (4.8-10.8) 12/10/20 08:46 RBC 4.99 M/uL (4.2-5.4) 12/10/20 08:46 Hgb 12.5 g/dL (12.0-16.0) 12/10/20 08:46 Hct 39.3 % (37-47) 12/10/20 08:46 MCV 78.8 fL (80-100) L 12/10/20 08:46 MCH 25.1 pg (25-34) 12/10/20 08:46 MCHC 31.8 g/dL (32-36) L 12/10/20 08:46 RDW Std Deviation 48.0 fL (36.4-46.3) H 12/10/20 08:46 RDW Coeff of [place] 16.8 % (11.5-14.5) H 12/10/20 08:46 Plt Count 281 K/uL (130-400) 12/10/20 08:46 MPV 11.2 fL (7.4-10.4) H 12/10/20 08:46 Immature Gran % (Auto) 0.2 % 12/10/20 08:46 Neut % (Auto) 62.1 % 12/10/20 08:46 Lymph % (Auto) 28.1 % 12/10/20 08:46 [place] % (Auto) 6.0 % 12/10/20 08:46 Eos % (Auto) 3.3 % 12/10/20 08:46 Baso % (Auto) 0.3 % 12/10/20 08:46 Neut # (Auto) 5.46 K/uL (1.4-6.5) 12/10/20 08:46 Lymph # (Auto) 2.48 K/uL (1.2-3.4) 12/10/20 08:46 [place] # (Auto) 0.53 K/uL (0.11-0.59) 12/10/20 08:46 Eos # (Auto) 0.29 K/uL (0-0.5) 12/10/20 08:46 Baso # (Auto) 0.03 K/uL (0-0.2) 12/10/20 08:46 Immature Gran # (Auto) 0.02 K/uL (0.00-0.02) 12/10/20 08:46 PT 10.4 Seconds (9.0-12.0) 12/09/20 15:13 INR 1.0 (0.9-1.1) 12/09/20 15:13 APTT 60.7 Seconds (21.0-31.0) H* 12/10/20 01:10 PTT Ratio 2.3 12/10/20 01:10 Sodium 140 mmol/L (136-145) 12/10/20 08:46 Potassium 3.7 mmol/L (3.5-5.1) 12/10/20 08:46 Chloride 109 mmol/L (98-107) H 12/10/20 08:46 Carbon Dioxide 24 mmol/L (21-32) 12/10/20 08:46 Anion Gap 7.0 (3-11) 12/10/20 08:46 BUN 7 mg/dl (7-18) 12/10/20 08:46 Creatinine 0.93 mg/dl (0.6-1.2) 12/10/20 08:46 Est Cr Clr Drug Dosing 114.4 ml/min 12/10/20 08:46 Est GFR ( Amer) 91.6 ml/min 12/10/20 08:46 Est GFR (Non-Af Amer) 79.1 ml/min 12/10/20 08:46 BUN/Creatinine Ratio 7.9 (10-20) L 12/10/20 08:46 Glucose 99 mg/dl (70-99) 12/10/20 08:46 Calcium 8.7 mg/dl (8.5-10.1) 12/10/20 08:46 Magnesium 2.3 mg/dl (1.8-2.4) 12/10/20 08:46 Total Bilirubin 0.3 mg/dl (0.2-1) 12/09/20 10:45 AST 13 U/L (15-37) L 12/09/20 10:45 ALT 19 U/L (12-78) 12/09/20 10:45 Alkaline Phosphatase 58 U/L (45-117) 12/09/20 10:45 Troponin I < 0.015 ng/ml (0-0.045) 12/09/20 10:45 Total Protein 6.4 gm/dl (6.4-8.2) 12/09/20 10:45 Albumin 3.3 gm/dl (3.4-5.0) L 12/09/20 10:45 Globulin 3.1 gm/dl (2.5-4.0) 12/09/20 10:45 Albumin/Globulin Ratio 1.1 (0.9-2) 12/09/20 10:45 TSH 2.370 uIu/ml (0.300-4.500) 12/09/20 10:45 HCG, Qual Negative (Negative) 12/09/20 10:45 Urine Color Yellow 12/09/20 15:43 Urine Appearance Clear (Clear) 12/09/20 15:43 Urine pH 5.5 (4.5-7.5) 12/09/20 15:43 Ur Specific [place] > 1.045 (1.000-1.030) H 12/09/20 15:43 Urine Protein Negative (Negative) 12/09/20 15:43 Urine Glucose (UA) Negative (Negative) 12/09/20 15:43 Urine Ketones Negative (Negative) 12/09/20 15:43 Urine Blood Negative (Negative) 12/09/20 15:43 Urine Nitrite Negative (Negative) 12/09/20 15:43 Urine Bilirubin Negative (Negative) 12/09/20 15:43 Urine Urobilinogen Negative (Negative) 12/09/20 15:43 Ur Leukocyte Esterase Negative (Negative) 12/09/20 15:43 COVID-19 Eval Order Covid19 at [facility] 12/09/20 13:31 SARS-CoV-2 (PCR) NEGATIVE (Negative) 12/09/20 13:31 Impressions Chest CTA 12/09/20 09:53 CT ANGIOGRAM OF THE CHEST CLINICAL HISTORY: sent by PCP for CT chest due to elevated dimer COMPARISON STUDY: November 30, 2013 TECHNIQUE: Following the IV administration of 120 mL of Optiray, CT angiogram of the thorax was performed from the thoracic inlet to the lung bases utilizing the pulmonary embolus protocol. Images are reviewed in the axial, sagittal, and coronal planes. IV contrast was administered without complication. MIP imaging was performed. A dose lowering technique was utilized adhering to the principles of ALARA. CT DOSE: FINDINGS: There is adequate opacification within main pulmonary artery. Evaluation of peripheral branches of pulmonary artery is limited due to motion artifact. Also significant beam hardening artifact due to patient body habitus significantly limits evaluation. No evidence of central pulmonary embolus. Main pulmonary artery is within upper limits of normal for size. No evidence of right heart strain. Heart is within upper limits of normal without evidence of pericardial effusion. No coronary calcifications are seen. Incidental findings of the filling defect within left atrial appendage which could represent small thrombus or flow artifact (301/94) No pathologically enlarged axillary mediastinal or hilar lymph nodes were visualized. There was no evidence of thoracic aortic dilatation. Trachea bronchial tree is patent. Patchy groundglass opacities are seen at dependent portions of bilateral lower lobes likely representing mild atelectasis. No large infiltrates or consolidative lesions are seen. No pleural effusions are visualized. Limited evaluation of upper abdominal viscera shows no definite acute abnormalities however evaluation is limited due to beam hardening artifact. Osseous structures: No significant abnormalities are seen in this slightly limited exam. IMPRESSION: 1. No evidence of central pulmonary embolus. No right heart strain is seen. Pulmonary artery is within upper limits of normal which could be seen in pulmonary hypertension. 2. Incidental finding of the focal filling defect within left atrial appendage which could be due to flow artifact or represent thrombus. Further evaluation with echocardiography is suggested. Report will be sent to ordering physician office. 3. Mild atelectasis at dependent portions of bilateral lower lobes. 4. The rest of findings as above. ACT 112: Negative or not required by law. The above report was generated using voice recognition software. It may contain grammatical, syntax or spelling errors. Electronically signed by: Hyun Powell DO 12/09/2020 12:[address] 12/09/20 09:[address] DOSE: HISTORY: vertigo TECHNIQUE: Multiaxial CT images of the head were performed without the use of intravenous contrast. Automated exposure control was utilized for this study. A dose lowering technique was utilized adhering to the principles of ALARA. Comparison: None. Findings: The paranasal sinuses and mastoid air cells are clear. The calvarium and skull base are intact. The ventricles and sulci are within normal limits. There is no mass, hematoma, midline shift, or acute infarct. Impression: No acute intracranial abnormality. ACT 112: Negative or not required by law. Electronically signed by: Je Rose M.D. 12/09/2020 12:08 PM Head CTA 12/09/20 09:53 HEAD & NECK CTA HISTORY: vertigo TECHNIQUE: Multiaxial CT images of the head were performed the intravenous administration of contrast to evaluate the major cerebral vessels. Multiaxial CT images of the neck were also performed following the intravenous administration of contrast to evaluate the major cervical vessels. Maximum intensity projection images were also obtained. A dose lowering technique was utilized adhering to the principles of ALARA. COMPARISON: None. FINDINGS: There is no mass, hematoma, midline shift, or acute infarct. Visualized intracranial internal carotid arteries, distal vertebral arteries, and basilar artery are widely patent. There is no significant stenosis, occlusion, or aneurysm seen within the bilateral ACAs, MCAs, or lead data entry operator. The major dural venous sinuses are patent. The aortic arch and proximal great vessels are widely patent. There is no significant stenosis, occlusion, or dissection identified within the bilateral common carotid, internal carotid, or vertebral arteries. IMPRESSION: 1. No significant stenosis, occlusion, or aneurysm within the [place]. 2. No significant stenosis, occlusion, or dissection identified within the carotid or vertebral arteries. ACT 112: Negative or not required by law. Electronically signed by: Je Rose M.D. 12/09/2020 12:12 PM Neck CTA 12/09/20 09:53 HEAD & NECK CTA HISTORY: vertigo TECHNIQUE: Multiaxial CT images of the head were performed the intravenous administration of contrast to evaluate the major cerebral vessels. Multiaxial CT images of the neck were also performed following the intravenous administration of contrast to evaluate the major cervical vessels. Maximum intensity projection images were also obtained. A dose lowering technique was utilized adhering to the principles of ALARA. COMPARISON: None. FINDINGS: There is no mass, hematoma, midline shift, or acute infarct. Visualized intracranial internal carotid arteries, distal vertebral arteries, and basilar artery are widely patent. There is no significant stenosis, occlusion, or aneurysm seen within the bilateral ACAs, MCAs, or lead data entry operator. The major dural venous sinuses are patent. The aortic arch and proximal great vessels are widely patent. There is no significant stenosis, occlusion, or dissection identified within the bilateral common carotid, internal carotid, or vertebral arteries. IMPRESSION: 1. No significant stenosis, occlusion, or aneurysm within the [place]. 2. No significant stenosis, occlusion, or dissection identified within the carotid or vertebral arteries. ACT 112: Negative or not required by law. Electronically signed by: Je Rose M.D. 12/09/2020 12:12 PM Brain MRI 12/09/20 13:14 MRI OF THE BRAIN WITHOUT CONTRAST CLINICAL HISTORY: vertigo COMPARISON STUDY: None. FINDINGS: Sagittal T1, axial diffusion, proton density and T2 weighted axial, coronal FLAIR, and axial T1-weighted images were acquired. No intra or extra-axial mass lesions are visualized Axial diffusion-weighted images reveal no evidence of acute or subacute infarction. There is no evidence of ventricular dilatation. Proton density T2-weighted and FLAIR images reveal no abnormalities. There are no abnormal flow voids. IMPRESSION: Normal study. ACT 112: Negative or not required by law. The above report was generated using voice recognition software. It may contain grammatical, syntax or spelling errors. Electronically signed by: Hyun Powell DO 12/09/2020 2:31 PM Medications Administered Current Inpatient Medications Albuterol (Albuterol 0.083% Nebu Soln 3 Ml Vial) 2.5 mg INH Q4H PRN PRN Reason: shortness of breath or wheezing Stop: 01/08/21 16:52 Albuterol (Albuterol Hfa 8 Gm Inhaler) 2 puffs INH Q4H PRN; Protocol PRN Reason: shortness of breath or wheezing Stop: 01/08/21 16:52 Cyanocobalamin (Cyanocobalamin 500 Mcg Tablet (Vitamin B-12)) 1,000 mcg PO DAILY DEON Stop: 01/09/21 08:59 Last Admin: 12/10/20 09:36 Dose: Not Given Documented by: Fexofenadine HCl (Fexofenadine Hcl 180 Mg Tab) 180 mg PO PM DEON Stop: 01/08/21 20:59 Last Admin: 12/09/20 20:49 Dose: 180 mg Documented by: Loratadine (Loratadine 10 Mg Tab) 10 mg PO DAILY DEON Stop: 01/09/21 08:59 Last Admin: 12/10/20 09:36 Dose: Not Given Documented by: Lorazepam (Lorazepam 1 Mg Tab) 1 mg PO BID PRN PRN Reason: anxiety Stop: 01/08/21 17:17 Ondansetron HCl (Ondansetron 4 Mg Od Tab) 4 mg PO Q6H PRN PRN Reason: Nausea And Vomiting Stop: 01/08/21 17:23 Pantoprazole Sodium (Pantoprazole 40 Mg Tab) 40 mg PO DAILY [facility] Stop: 01/09/21 08:59 Last Admin: 12/10/20 09:36 Dose: Not Given Documented by: Promethazine HCl (Promethazine Hcl 25 Mg Tab) 25 mg PO ONCE PRN PRN Reason: nausea and vomiting Stop: 01/08/21 16:52 Tizanidine HCl (Tizanidine Hcl 4 Mg Tablet) 2 mg PO BID PRN PRN Reason: migraines Stop: 01/08/21 16:52
--- NOTE | 2020-12-10 13:17 | Anesthesiology Progress Note ---
Date of Service December 10, 2020 Anesthesia Post Procedure Vital Signs Vital Signs: Temp Pulse Pulse Resp BP BP BP 12/10/20 12:49 77 18 147/89 H 12/10/20 11:29 36.9 C 74 20 128/84 12/10/20 11:23 36.6 C 78 18 136/85 12/10/20 07:36 36.6 C 94 H 18 101/67 12/10/20 07:24 36.4 C L 93 H 18 113/74 12/10/20 06:20 87 12/10/20 03:57 36.6 C 92 H 20 117/81 12/09/20 23:40 88 12/09/20 23:27 36.8 C 92 H 18 134/81 12/09/20 21:05 36.8 C 94 H 18 121/84 12/09/20 16:53 37.1 C 94 H 86 20 127/84 12/09/20 15:33 81 20 163/99 H Pulse Ox 12/10/20 12:49 96 12/10/20 11:29 92 12/10/20 11:23 96 12/10/20 07:36 99 12/10/20 07:24 99 12/10/20 06:20 12/10/20 03:57 96 12/09/20 23:40 12/09/20 23:27 93 12/09/20 21:05 95 12/09/20 16:53 98 12/09/20 15:33 94 Pain Intensity Anterior Head: Pain Intensity: 4 Transfer of Care Handoff Completed per policy Notes Mental Status: alert / awake / arousable and participated in evaluation Patient Amnestic to Procedure: Yes Nausea / Vomiting: adequately controlled Pain: adequately controlled Airway Patency, RR, SpO2: stable & adequate BP & HR: stable & adequate Hydration State: stable & adequate Anesthetic Complications: no major complications apparent and Pt Satisfied with anesthetic care
--- NOTE | 2020-12-10 16:49 | Discharge Summary ---
Date of Service December 10, 2020 Admission HPI Per Admitting Provider 35 YOF with past medical history of: Anxiety, Anemia, arthritis, allergic rhinitis, asthma, migraine, chronic pain, graves disease. Patient was referred in to the EMD from her PCP where she was originally being worked up for dizziness, headache and vertigo like symptoms and dyspnea. She was prescribed meclizine and had a D-dimer ordered that returned at level of 540, for this she was referred to the EMD for CT scan of the chest to rule out PE. In the EMD she had a CT scan of the head, CTA of the neck and head performed. CTA of the head and neck were negative. CTA of the chest has a question of a filling defect within the left atrial appendage as either flow artifact or represent a thrombus. MRI of the brain was performed to rule out CVA in regards to this finding. MRI was negative for CVA. Patient will be admitted, started on Heparin drip, NPO after midnight for SONG evaluation. Cardiology has been consulted and anesthesia consulted. Patient has a history of a upper arm DVT in 2014 following PICC line insertion in [place] for status migrainous admission. She was on Coumadin at that time and completed her therapy in 09/25, has not been on anticoagulation since then. She is not on OCP since 2015 clot, and does not smoke. She did have a positive KINA in 2018. She has no history of atrial fibrillation that she knows of, she only recalls one period where she has felt her heart rate was out of control and that was back prior to 2009 when she was getting worked up for Grave's Disease, where she saw Dr. Romero through cardiology. She gets conscious sedation for her dental cleanings and she reports that she has not had any issues. For the patient's dizziness and headache- the meclizine she was prescribe she did not feel to help. Her symptoms are when she is up and moving around and feels as pressure deep in her head, which could be consistent with her sinuses or eustachian tube dysfunction, she has been having some PND and scratchy throats in the morning. For her dyspnea that she was experiencing this was relieved with her albuterol inhalers and associated with the PND she was having as well as tickle in her throat. Following her acute work-up for the incidental possible left atrial thrombus can re-visit these. Admission Exam Per Admitting Provider General: awake, alert, no apparent distress Head: Normocephalic, atraumatic, some cervical neck tightness, but full range of motion with out tenderness ENT: PERRLA, EOMI, no pharyngeal exudate, mucous membranes moist Neuro: AAO x 3, speech clear and appropriate, strength intact bilaterally 5/5, sensation intact and equal all extremities and dermatomes, no pronator drift Chest: equal rise and fall of the chest, no accessory muscle use, no heaves or thrills, Clear to auscultation, on room air, Cardiac: Regular rate and rhythm, telemetry reviewed- NSR, skin warm dry, cap refill <3 seconds, peripheral pulses +2 no JVD, no murmur, no edema GI: NABS x 4 quadrants, soft, nontender to palpation, no rebound, guarding or tenderness : Spontaneously voiding, no pain, no CVA tenderness, Extremities: Normal inspection, no peripheral edema or erythema, calfs nontender to palpation Psych: Normal mood and affect Skin: no rash or erythema Principal Diagnosis Rule out of left atrial appendage thrombus Discharge Exam General: awake, alert, no apparent distress HEENT: PERRLA, EOMI, mucous membranes moist Neuro: AAO x 3, speech clear and appropriate, strength intact bilaterally 5/5 UE and LE, sensation intact and equal Chest: equal rise and fall of the chest, no accessory muscle use, no heaves or thrills, Minor expiratory wheeze bilaterally Cardiac: Regular rate and rhythm, telemetry reviewed- NSR, skin warm dry, cap refill <3 seconds, peripheral pulses +2 no JVD, no murmur, no edema GI: Soft, nontender to palpation, no rebound, guarding or tenderness Extremities: Normal inspection, no peripheral edema or erythema, calves nontender to palpation Psych: Normal mood and affect Skin: no rash, warmth, swelling or erythema Discharge Data Allergies Allergy/AdvReac Type Severity Reaction Status Date / Time pollen extracts Allergy Intermediate asthma Verified 12/09/20 10:56 sumatriptan Allergy Intermediate unknown Verified 12/09/20 10:56 aspirin Allergy Mild Unknown Verified 12/09/20 10:56 bacitracin Allergy Mild HIVES Verified 12/09/20 10:56 divalproex sodium Allergy Mild Unknown Verified 12/09/20 10:56 [From Depakote] doxycycline Allergy Mild GI SYMPTOMS Verified 12/09/20 10:56 neomycin Allergy Mild HIVES Verified 12/09/20 10:56 polymyxin B Allergy Mild HIVES Verified 12/09/20 10:56 povidone-iodine Allergy Mild HIVES Verified 12/09/20 10:56 soap [From Betadine] Allergy Mild Unknown Verified 12/09/20 10:56 adhesive Allergy Unknown ERYTHEMA Verified 12/10/20 02:22 animal dander Allergy Unknown . Verified 12/09/20 10:56 levofloxacin Allergy Unknown itchy/breathing Verified 12/09/20 10:56 difficulty topiramate [From Topamax] Allergy Unknown Verified 12/09/20 10:56 eletriptan AdvReac Intermediate neck Verified 12/09/20 10:56 stiffness fremanezumab-vfrm AdvReac Intermediate welt and Verified 12/09/20 10:56 [From Ajovy] itching lamotrigine [From Lamictal] AdvReac Intermediate Headache Verified 12/09/20 10:56 zonisamide [From Zonegran] AdvReac Mild Nausea Verified 12/09/20 10:56 Consultations 12/09/20 13:29 ED Decision to Admit Stat 12/09/20 14:55 Consult Anesthesiology Routine 12/09/20 16:53 Consult Cardiology Routine Procedures Performed Operation Date: 12/10/20 13:00 Actual Procedures p Echo Transesophageal - Paramjit Leon MD s Echo Color Flow - Paramjit Leon MD s Echo Doppler Complete - Paramjit Leon MD Ordered Studies 12/09/20 09:53 CT angio chest PE protocol Stat CT angio head w con Stat CT angio neck with con Stat CT head/brain wo con Stat 12/09/20 13:14 MR brain wo con Stat Hospital Course (1) Left atrial thrombus: Pt was hospitalized from 12/09 to 12/10 for dizziness, headache and dyspnea following referral to ED from PCP due to elevated D-dimer 540. CTA of chest negative for pulmonary embolism but revealed focal filling defect concerning for left atrial appendage thrombus vs flow artifact. Pt started on Heparin drip, seen by cardiology and scheduled for transesophageal echocardiogram in AM for evaluation of potential LIBRA thrombus. SONG revealed no thrombus and filling defect attributed to false positive from prominent pulmonary vein distorting architecture near LIBRA. EKG, CT head and neck, brain MRI all benign. Pt's symptoms resolved with PRN albuterol and pain medication. Hemodynamically stable and normal cardiorespiratory exam during hospital stay and at time of discharge. No acute complaints at discharge. (2) Dyspnea: (3) Headache: (4) Tension headache: (5) Asthma: (6) Morbid obesity: (7) Depression with anxiety: (8) Hypothyroidism: (9) Osteoarthritis of knees, bilateral: Total Time Total Time Spent Total Time Spent (In Minutes): 30 Discharge Plan Discharge Items Patient Disposition: Home - Self-Care Reason For Visit: LEFT ATRIAL THROMBUS RULE OUT Discharge Diagnosis: Vertigo Condition on Discharge: Good Activity: Per Instructions section Non-emergency contact: Primary Care Provider Call non-emergency contact if: you have any medication questions and your symptoms worsen Follow-up/Referrals: Adrienne Braun MD [Primary Care Provider] - 12/24/20 3:00 pm (WITH BRENDAN LERMA) Diet: Regular Addtl Attending Provider Instructions: You were admitted to the hospital for dizziness. Dizziness You were hospitalized from 12/09 to 12/10 for dizziness and feeling unwell over the last several days. You were seen by your PCP and told to come to the ER after a blood test revealed an elevated D-Dimer level. You received workup via a CT scan to rule out pulmonary embolism and were discovered to potentially have a left atrial appendage thrombus. Your hospital stay was then focused on ruling out the presence of a left atrial appendage thrombus. You then received a transesophageal echocardiogram to evaluate for the potential thrombus, which was absent upon evaluation. Your vital signs were stable during your hospitalization and your dizziness was likely due to your vertigo. Your shortness of breath also improved during your hospitalization. A discharge summary will be sent to your primary care physician to ensure continuity of care. Please bring this discharge summary with you to your next office appointment so that your provider can review it at that time. Follow-up appointments: Make a follow-up appointment with your PCP within the next week. It is very important that you follow up with them shortly after discharge from the hospital.] Keep all your follow-up appointments as already scheduled. If you cannot make an appointment, notify your provider. Medications: Your medication list has been reviewed and reconciled upon discharge to ensure accuracy and continuity of care. An updated list of all your medications is included with your hospital discharge paperwork. Please review this list closely, and make note of any changes. Take your medications as instructed; do not skip a dose of your medicines. Make sure all of your doctors know every medicine you are taking (including etfo-kyd-fcjhmup medicines, vitamins, and supplements). Call your primary care provider before taking any new medicines (including lzoj-kte-hpcjiuw medicines, vitamins, and supplements), because some of these may interact with your current medications, or may make your symptoms worse. Tell your primary care provider if you cannot afford your medications. CONTACT YOUR PRIMARY CARE PROVIDER if you experience any of the following: Shortness of breath Chest pain Lightheadedness Dizziness Difficulty following your treatment plan, or difficulty taking medications CALL 911 OR GO TO THE EMERGENCY DEPARTMENT if you experience any of the following: Sudden, severe abdominal pain or nausea/vomiting Severe chest pain, or chest pain that radiates (moves) to your jaw or arm Sudden, severe shortness of breath or difficulty breathing Thank you for allowing us to participate in your care. Pending Studies at Discharge: No Stand-Alone Forms: My [facility] [employer], Work/School Release, Smoking Cessation Medications and DC Order Prescriptions: Continued olopatadine 0.7 % drops 1 drp OPB DAILY RF: 0 cyanocobalamin (vitamin B-12) 1,000 mcg tablet extended release 1,000 mcg PO DAILY RF: 0 albuterol sulfate 2.5 mg /3 mL (0.083 %) solution for nebulization 2.5 mg inhalation Q4H PRN (Reason: shortness of breath or wheezing) Qty: 3 RF: 6 lorazepam 1 mg tablet 1 mg PO BID PRN (Reason: anxiety) Qty: 30 RF: 0 cholecalciferol (vitamin D3) 50 mcg (2,000 unit) capsule 5,000 unit PO DAILY RF: 0 fexofenadine 180 mg tablet 180 mg PO PM RF: 0 ondansetron 4 mg tablet,disintegrating 4 mg PO ONCE PRN (Reason: nausea and vomiting) Qty: 30 RF: 2 promethazine 25 mg tablet 25 mg PO ONCE PRN (Reason: nausea and vomiting) Qty: 30 RF: 2 meclizine 25 mg tablet 25 mg PO TID PRN (Reason: dizziness) Qty: 60 RF: 0 albuterol sulfate 90 mcg/actuation HFA aerosol inhaler 2 puffs INH Q4H PRN (Reason: shortness of breath or wheezing) Qty: 18 RF: 11 pantoprazole 40 mg tablet,delayed release (DR/EC) 40 mg PO DAILY Qty: 90 RF: 3 tizanidine 2 mg Tablet 2 - 4 mg PO BID PRN (Reason: migraines) RF: 0 tramadol 50 mg Tablet 50 mg PO BID PRN (Reason: Pain) RF: 0 ibuprofen 200 mg Tablet 400 mg PO QAM PRN (Reason: Pain) RF: 0 ferrous sulfate 27 mg iron Tablet 0 mg PO Q OTHER DAY RF: 0 levocetirizine 5 mg tablet 5 mg PO DAILY RF: 0 Discharge Orders: Discharge Order (Routine); Ordered 12/10/20 Ordered By: Josie Echeverria Admission Data Admit Date/Time: 12/09/20 14:58 Attending Provider: Xochitl Milligan Admit Provider: Sergio Larsen Primary Care Provider: Adrienne Braun Other Providers: Deb Tomlinson ; Ernestina Chavira ; Michelle Palm ; Melanie Mosley ; Samantha Nice ; Elizabeth Gerardo ; Cedrick Marley ; Bradford Jhaveri ; Amari Chicas ; Je Venegas ; Melida Venegas ; Anshul Espinosa ; Franchesca Johnson ; Yovani Benoit ; Juan Carlos Ahumada ; Parish Crawley ; Garett Duval ; Meli Abel ; Uziel Story ; Dawna Londono ; Nannette Story ; Gilberto Davis ; Cyndee Simon ; Ramses Mcintosh ; Debra Calles ; Wendy Singh ; Cyndee Espinal ; Sarah Ruiz ; Ryan Mcgraw ; Deb Fair ; Megan Claros ; Shonna Hernandez ; Katarzyna Fajardo ; Messi Fajardo V ; Bakari Mills ; Michelle Cruz ; Shashi Cole ; Sofi Ward ; Luisana Arenas ; Messi Garcia ; Rahul Abel ; Dong Villagran ; Connie العلي ; Shonna Carter ; Storm Diane ; Mo Duval ; Becky Cullen ; Tre Rodríguez ; Luana Cross ; Jameson Chester ; Nathan Olivarez ; Tre Lemus ; Cedrick Self Jr ; Maia Mcgregor ; Paramjit Leon Other Interventions: Discharge Summary Assessment (RN) Last Done: 12/10/20 15:59 Supervising Physician Co-Signing Physician Notes Resident Physician Supervision Note: I independently interviewed and examined the patient and verified the taylor history and physical, reviewed labs and image studies and agree with resident Dr. Echeverria findings and care plan. Resident Activity Tracking Resident Involvement: Resident Care Provided Care Provided: Adult Hospital Medicine
--- NOTE | 2020-12-10 17:05 | XCELERA ---
[id number]
--- NOTE | 2020-12-10 17:08 | Discharge Summary ---
Date of Service December 10, 2020 Admission HPI Per Admitting Provider 35 YOF with past medical history of: Anxiety, Anemia, arthritis, allergic rhinitis, asthma, migraine, chronic pain, graves disease. Patient was referred in to the EMD from her PCP where she was originally being worked up for dizziness, headache and vertigo like symptoms and dyspnea. She was prescribed meclizine and had a D-dimer ordered that returned at level of 540, for this she was referred to the EMD for CT scan of the chest to rule out PE. In the EMD she had a CT scan of the head, CTA of the neck and head performed. CTA of the head and neck were negative. CTA of the chest has a question of a filling defect within the left atrial appendage as either flow artifact or represent a thrombus. MRI of the brain was performed to rule out CVA in regards to this finding. MRI was negative for CVA. Patient will be admitted, started on Heparin drip, NPO after midnight for SONG evaluation. Cardiology has been consulted and anesthesia consulted. Patient has a history of a upper arm DVT in 2014 following PICC line insertion in [place] for status migrainous admission. She was on Coumadin at that time and completed her therapy in 09/25, has not been on anticoagulation since then. She is not on OCP since 2015 clot, and does not smoke. She did have a positive KINA in 2018. She has no history of atrial fibrillation that she knows of, she only recalls one period where she has felt her heart rate was out of control and that was back prior to 2009 when she was getting worked up for Grave's Disease, where she saw Dr. Romero through cardiology. She gets conscious sedation for her dental cleanings and she reports that she has not had any issues. For the patient's dizziness and headache- the meclizine she was prescribe she did not feel to help. Her symptoms are when she is up and moving around and feels as pressure deep in her head, which could be consistent with her sinuses or eustachian tube dysfunction, she has been having some PND and scratchy throats in the morning. For her dyspnea that she was experiencing this was relieved with her albuterol inhalers and associated with the PND she was having as well as tickle in her throat. Following her acute work-up for the incidental possible left atrial thrombus can re-visit these. Principal Diagnosis Rule out left atrial appendage thrombus Discharge Data Allergies Allergy/AdvReac Type Severity Reaction Status Date / Time pollen extracts Allergy Intermediate asthma Verified 12/09/20 10:56 sumatriptan Allergy Intermediate unknown Verified 12/09/20 10:56 aspirin Allergy Mild Unknown Verified 12/09/20 10:56 bacitracin Allergy Mild HIVES Verified 12/09/20 10:56 divalproex sodium Allergy Mild Unknown Verified 12/09/20 10:56 [From Depakote] doxycycline Allergy Mild GI SYMPTOMS Verified 12/09/20 10:56 neomycin Allergy Mild HIVES Verified 12/09/20 10:56 polymyxin B Allergy Mild HIVES Verified 12/09/20 10:56 povidone-iodine Allergy Mild HIVES Verified 12/09/20 10:56 soap [From Betadine] Allergy Mild Unknown Verified 12/09/20 10:56 adhesive Allergy Unknown ERYTHEMA Verified 12/10/20 02:22 animal dander Allergy Unknown . Verified 12/09/20 10:56 levofloxacin Allergy Unknown itchy/breathing Verified 12/09/20 10:56 difficulty topiramate [From Topamax] Allergy Unknown Verified 12/09/20 10:56 eletriptan AdvReac Intermediate neck Verified 12/09/20 10:56 stiffness fremanezumab-vfrm AdvReac Intermediate welt and Verified 12/09/20 10:56 [From Ajovy] itching lamotrigine [From Lamictal] AdvReac Intermediate Headache Verified 12/09/20 10:56 zonisamide [From Zonegran] AdvReac Mild Nausea Verified 12/09/20 10:56 Consultations 12/09/20 13:29 ED Decision to Admit Stat 12/09/20 14:55 Consult Anesthesiology Routine 12/09/20 16:53 Consult Cardiology Routine Procedures Performed Operation Date: 12/10/20 13:00 Actual Procedures p Echo Transesophageal - Paramjit Leon MD s Echo Color Flow - aPramjit Leon MD s Echo Doppler Complete - Paramjit Leon MD Ordered Studies 12/09/20 09:53 CT angio chest PE protocol Stat CT angio head w con Stat CT angio neck with con Stat CT head/brain wo con Stat 12/09/20 13:14 MR brain wo con Stat Hospital Course (1) Near syncope: 35 YOF with past medical history of: Anxiety, Anemia, arthritis, allergic rhinitis, asthma, migraine, chronic pain, graves disease, provoked DVT from PICC line. Sent to ED by PCP for dizziness, headache and vertigo like symptoms and dyspnea and elevated D dimer of 540. CTA noted findings of left atrial thrombus. Had work up to rule out stroke which was negative including negative MRI brain. Kept on Heparin drip and NPO. Cardiology consulted. SONG done showed no thrombus. Discharged home to follow up with PCP Total Time Total Time Spent Total Time Spent (In Minutes): 30 Discharge Plan Discharge Items Patient Disposition: Home - Self-Care Reason For Visit: LEFT ATRIAL THROMBUS RULE OUT Discharge Diagnosis: Vertigo Condition on Discharge: Good Activity: Per Instructions section Non-emergency contact: Primary Care Provider Call non-emergency contact if: you have any medication questions and your symptoms worsen Follow-up/Referrals: Adrienne Braun MD [Primary Care Provider] - 12/24/20 3:00 pm (WITH BRENDAN LERMA) Diet: Regular Addtl Attending Provider Instructions: You were admitted to the hospital for dizziness. Dizziness You were hospitalized from 12/09 to 12/10 for dizziness and feeling unwell over the last several days. You were seen by your PCP and told to come to the ER after a blood test revealed an elevated D-Dimer level. You received workup via a CT scan to rule out pulmonary embolism and were discovered to potentially have a left atrial appendage thrombus. Your hospital stay was then focused on ruling out the presence of a left atrial appendage thrombus. You then received a transesophageal echocardiogram to evaluate for the potential thrombus, which was absent upon evaluation. Your vital signs were stable during your hospitalization and your dizziness was likely due to your vertigo. Your shortness of breath also improved during your hospitalization. A discharge summary will be sent to your primary care physician to ensure continuity of care. Please bring this discharge summary with you to your next office appointment so that your provider can review it at that time. Follow-up appointments: Make a follow-up appointment with your PCP within the next week. It is very important that you follow up with them shortly after discharge from the hospital.] Keep all your follow-up appointments as already scheduled. If you cannot make an appointment, notify your provider. Medications: Your medication list has been reviewed and reconciled upon discharge to ensure accuracy and continuity of care. An updated list of all your medications is included with your hospital discharge paperwork. Please review this list closely, and make note of any changes. Take your medications as instructed; do not skip a dose of your medicines. Make sure all of your doctors know every medicine you are taking (including xnyt-[id number]-[id number] medicines, vitamins, and supplements). Call your primary care provider before taking any new medicines (including bill-njp-vzhrygg medicines, vitamins, and supplements), because some of these may interact with your current medications, or may make your symptoms worse. Tell your primary care provider if you cannot afford your medications. CONTACT YOUR PRIMARY CARE PROVIDER if you experience any of the following: Shortness of breath Chest pain Lightheadedness Dizziness Difficulty following your treatment plan, or difficulty taking medications CALL 911 OR GO TO THE EMERGENCY DEPARTMENT if you experience any of the following: Sudden, severe abdominal pain or nausea/vomiting Severe chest pain, or chest pain that radiates (moves) to your jaw or arm Sudden, severe shortness of breath or difficulty breathing Thank you for allowing us to participate in your care. Pending Studies at Discharge: No Stand-Alone Forms: My [facility] [employer], Work/School Release, Smoking Cessation Medications and DC Order Prescriptions: Continued olopatadine 0.7 % drops 1 drp OPB DAILY RF: 0 cyanocobalamin (vitamin B-12) 1,000 mcg tablet extended release 1,000 mcg PO DAILY RF: 0 albuterol sulfate 2.5 mg /3 mL (0.083 %) solution for nebulization 2.5 mg inhalation Q4H PRN (Reason: shortness of breath or wheezing) Qty: 3 RF: 6 lorazepam 1 mg tablet 1 mg PO BID PRN (Reason: anxiety) Qty: 30 RF: 0 cholecalciferol (vitamin D3) 50 mcg (2,000 unit) capsule 5,000 unit PO DAILY RF: 0 fexofenadine 180 mg tablet 180 mg PO PM RF: 0 ondansetron 4 mg tablet,disintegrating 4 mg PO ONCE PRN (Reason: nausea and vomiting) Qty: 30 RF: 2 promethazine 25 mg tablet 25 mg PO ONCE PRN (Reason: nausea and vomiting) Qty: 30 RF: 2 meclizine 25 mg tablet 25 mg PO TID PRN (Reason: dizziness) Qty: 60 RF: 0 albuterol sulfate 90 mcg/actuation HFA aerosol inhaler 2 puffs INH Q4H PRN (Reason: shortness of breath or wheezing) Qty: 18 RF: 11 pantoprazole 40 mg tablet,delayed release (DR/EC) 40 mg PO DAILY Qty: 90 RF: 3 tizanidine 2 mg Tablet 2 - 4 mg PO BID PRN (Reason: migraines) RF: 0 tramadol 50 mg Tablet 50 mg PO BID PRN (Reason: Pain) RF: 0 ibuprofen 200 mg Tablet 400 mg PO QAM PRN (Reason: Pain) RF: 0 ferrous sulfate 27 mg iron Tablet 0 mg PO Q OTHER DAY RF: 0 levocetirizine 5 mg tablet 5 mg PO DAILY RF: 0 Discharge Orders: Discharge Order (Routine); Ordered 12/10/20 Ordered By: Josie Echeverria Admission Data Admit Date/Time: 12/09/20 14:58 Attending Provider: Xochitl Milligan Admit Provider: Sergio Larsen Primary Care Provider: Adrienne Braun Other Providers: Deb Tomlinson ; Ernestina Chavira ; Michelle Palm ; Melanie Mosley ; Samantha Nice ; Elizabeth Gerardo ; Cedrick Marley ; Bradford Jhaveri ; Amari Chicas ; Je Venegas ; Melida Venegas ; Anshul Espinosa ; Franchesca Johnson ; Yovani Benoit ; Juan Carlos Ahumada ; Parish Crawley ; Garett Duval ; Meli Abel ; Uziel Story ; Dawna Londono ; Nannette Story ; Gilberto Davis ; Cyndee Simon ; Ramses Mcintosh ; Debra Calles ; Wendy Singh ; Cyndee Espinal ; Sarah Ruiz ; Ryan Mcgraw ; Deb Fair ; Megan Claros ; Shonna Hernandez ; Katarzyna Fajardo ; Messi Fajardo V ; Bakari Mills ; Michelle Cruz ; Shashi Cole ; Sofi Ward ; Luisana Arenas ; Messi Garcia ; Rahul Abel ; Dong Villagran ; Connie العلي ; Shonna Carter ; Storm Diane ; Mo Duval ; Becky Cullen ; Tre Rodríguez ; Luana Cross ; Jameson Chester ; Nathan Olivarez ; Tre Lemus ; Cedrick Self Jr ; Maia Mcgregor ; Paramjit Leon Other Interventions: Discharge Summary Assessment (RN) Last Done: 12/10/20 15:59 Supervising Physician Co-Signing Physician Notes Resident Physician Supervision Note: I independently interviewed and examined the patient and verified the taylor history and physical, reviewed labs and image studies and agree with resident Dr. Echeverria findings and care plan.
--- NOTE | 2020-12-10 17:56 | Cardiology Consultation ---
Date of Consultation December 10, 2020 Assessment & Plan (1) Abnormal chest CT: (2) Hx of blood clots: Patient with remote history of PICC line thrombus and recent potential neurologic symptoms who was noted on chest CT to have possible left atrial appendage filling defect. Fortunately, transesophageal echocardiogram today showed normal left atrial appendage with no evidence of thrombus and with good contractile function. As noted under transesophageal echocardiogram report, the source of the filling beat defect may have been the septum between her left atrial appendage and an apparent anatomic variant of mildly dilated confluence of her left-sided pulmonary vein inflow into the left atrium. She does not give a history suggestive of paroxysmal atrial fibrillation, however I did show her how to use the instant heart rate iPhone brittany should she experience any future palpitations (she can take a screenshot). In the absence of new symptoms, no further cardiology follow-up needed at this time. History of Present Illness Reason for Consultation: Rule out left atrial appendage thrombus Requesting Physician: Xochitl Milligan MD Attending Physician: Xochitl Milligan MD History of Present Illness 35-year-old woman with history of treated Graves' disease, asthma, and other medical problems (but no cardiac history) who was being evaluated for dizziness/headache/vertigo and was noted to have possible left atrial appendage thrombus on a chest CT performed to rule out pulmonary embolism. Patient denies any subjective palpitations recently (she did have tachypalpitations years ago when she had Graves' disease) and notes no exertional dyspnea, chest pain, presyncope, or syncope. She does have history of a thrombus formed on a PICC line when she was on oral contraceptives, she is no longer on any oral contraceptive pill. She had no somatic complaints at the time of my evaluation. Allergies Allergy/AdvReac Type Severity Reaction Status Date / Time pollen extracts Allergy Intermediate asthma Verified 12/09/20 10:56 sumatriptan Allergy Intermediate unknown Verified 12/09/20 10:56 aspirin Allergy Mild Unknown Verified 12/09/20 10:56 bacitracin Allergy Mild HIVES Verified 12/09/20 10:56 divalproex sodium Allergy Mild Unknown Verified 12/09/20 10:56 [From Depakote] doxycycline Allergy Mild GI SYMPTOMS Verified 12/09/20 10:56 neomycin Allergy Mild HIVES Verified 12/09/20 10:56 polymyxin B Allergy Mild HIVES Verified 12/09/20 10:56 povidone-iodine Allergy Mild HIVES Verified 12/09/20 10:56 soap [From Betadine] Allergy Mild Unknown Verified 12/09/20 10:56 adhesive Allergy Unknown ERYTHEMA Verified 12/10/20 02:22 animal dander Allergy Unknown . Verified 12/09/20 10:56 levofloxacin Allergy Unknown itchy/breathing Verified 12/09/20 10:56 difficulty topiramate [From Topamax] Allergy Unknown Verified 12/09/20 10:56 eletriptan AdvReac Intermediate neck Verified 12/09/20 10:56 stiffness fremanezumab-vfrm AdvReac Intermediate welt and Verified 12/09/20 10:56 [From Ajovy] itching lamotrigine [From Lamictal] AdvReac Intermediate Headache Verified 12/09/20 10:56 zonisamide [From Zonegran] AdvReac Mild Nausea Verified 12/09/20 10:56 Home Medications Medication Instructions Recorded Confirmed Type cyanocobalamin (vitamin B-12) 1,000 mcg PO DAILY tab 03/30/19 12/09/20 History 1,000 mcg tablet,extended release olopatadine 0.7 % eye drops 1 drp OPB DAILY 03/30/19 12/09/20 History albuterol sulfate 2.5 mg INHALATION Q4H PRN #3 ml 07/25/19 12/09/20 Rx lorazepam 1 mg tablet 1 mg PO BID PRN #30 tab 07/29/19 12/09/20 Rx albuterol sulfate 90 mcg/actuation 2 puffs INH Q4H PRN #18 gm 11/24/19 12/09/20 Rx aerosol inhaler pantoprazole 40 mg tablet,delayed 40 mg PO DAILY #90 tab 11/24/19 12/09/20 Rx release fexofenadine 180 mg tablet 180 mg PO PM 02/24/20 12/09/20 History cholecalciferol (vitamin D3) 50 5,000 unit PO DAILY cap 08/20/20 12/09/20 History mcg (2,000 unit) capsule ondansetron 4 mg disintegrating 4 mg PO ONCE PRN #30 tab 09/30/20 12/09/20 Rx tablet promethazine 25 mg tablet 25 mg PO ONCE PRN #30 tab 09/30/20 12/09/20 Rx meclizine 25 mg tablet 25 mg PO TID PRN #60 tab 12/08/20 12/09/20 Rx ferrous sulfate 27 mg iron tablet 0 mg PO Q OTHER DAY 12/09/20 12/09/20 History ibuprofen 200 mg tablet 400 mg PO QAM PRN 12/09/20 12/09/20 History levocetirizine 5 mg tablet 5 mg PO DAILY 12/09/20 12/09/20 History tizanidine 2 mg tablet 2 - 4 mg PO BID PRN 12/09/20 12/09/20 History tramadol 50 mg tablet 50 mg PO BID PRN 12/09/20 12/09/20 History Patient History Medical History (Updated 12/10/20 @ 17:49 by Paramjit Leon MD) Acute deep vein thrombosis of right upper extremity Asthma Chronic GERD Depression with anxiety Dislocation of left hip Dysmenorrhea Fecal retention Generalized hypermobility of joints Graves disease Hypothyroidism Irritable bowel syndrome Migraines Morbid obesity Vertigo Surgical History H/O wisdom tooth extraction S/P laparoscopic procedure 2011, neg for pelvic pain Family History Diabetes Father Mother Dyslipidemia Father Breast cancer Mother age 60's Grandmother (Paternal) Glaucoma Mother Hypertension Father Mother Asthma Mother Denies family history of Ovarian cancer Colorectal cancer Social History Smoking Status: Never smoker Hx Alcohol Use: No Hx Substance Use: No Preferred Language: Micronesian Communication Ability: Effective Visual Impairment: No Limitations Hearing Ability: Normal Beliefs That Will Affect Care: None marital status: single Current Living Situation: Parent current occupational status: student Feels Safe at Home: Yes Assistive Devices: None Physical Exam Physical Exam: No distress. BP normotensive. Pulse 88 bpm and regular without ectopy. Skin: no ecchymoses or generalized lesions. HEENT: unremarkable. Neck: no JVD or carotid bruits. Lungs: clear. No wheezing. Cardiac: regular rhythm, no murmur or gallop. Abdomen: benign. Extremities: no edema, pulses intact. Neurologic: normal affect, nonfocal. Results & Data ([facility]) Laboratory Results Normal CBC. Normal electrolytes, creatinine 0.93. D-dimer was mildly elevated at 540. Troponin was negative. Diagnostic Findings Chest CT showed no evidence of pulmonary embolism. There was however an "incidental finding of the focal filling defect within left atrial appendage which could be due to flow artifact or represent thrombus. Further evaluation with echocardiography is suggested." ECGs yesterday and today showed sinus rhythm and were unremarkable. Transesophageal echocardiogram today showed normal left atrial appendage with no evidence of thrombus. There was confluence of the left-sided pulmonary veins with a dilated inflow to the left atrium (1.8 cm diameter), this anatomic variant may have highlighted the septum between the pulmonary veins and left atrium and thereby account for the chest CT findings. PG Care Time/CCT Total # of Minutes Spent Total Time Spent with Patient: Total time spent is greater than 50% in coordination of care (as documented) at patient's floor/unit and/or counseling patient: Coding Level of Care Code 10658 Inpt Consult Level 3 Diagnoses Hx of blood clots Z86.[address] R93.89
== END 2020-12-10 16:44 | disposition home or self-care (01) | DRG 303 ==
LOC: ED 09:24 → SUATTDRO 14:58 → 2N 14:58